=== PATIENT | female | born 1945 | race Caucasian/White ===

== ENCOUNTER → 2017-11-30 | Outpatient (CLI) | payer MEDICARE ==
[~2017-11-30] MED LIST: ALE70 PO; ALLO-2 PO; ALLO100T70 PO; ASP81 PO; ASPI-715 PO; ASPI-839 PO; AZIT500T47 PO; BLOO-784 MC; CEPH-13 PO; CIP500 PO; CIPR-214 PO; CODE120S4 PO; CYAN20003 PO; DAR100 PO; DOC100 PO; FUR20 PO; FURO-45 PO; GLIP-152 PO; HYDR-317 PO; HYDR-385 PO; HYDR473S4 PO; IBAN150T6 PO; LEV500 PO; LEVO50TA80 PO; LEVO50TA86 PO; LIS10 PO; LISI-362 PO; LOR5 PO; METF-410 PO; NAPR-723 PO; OMEP-125 PO; OMEP-137 PO; OMEP-153 PO; ONDA4TAB PO; OXYC-865 PO; PAN40 PO; PER PO; PNEU0.5D3 IM; PRA20 PO; PRAV20TA65 PO; PRAV40TA78 PO; PRAV80TA29 PO; PRO25 PO; PROP40TA45 PO; PROPANOLOL PO; ROSU20TA23 PO; SITA100T PO; SITA50TA6 PO; SULF-197 PO; TERB250T74 PO; TETA0.5V12 IM; TRAM-420 PO; TRAZ-156 PO; ZOST19404 SQ; [UNRECOGNIZED DRUG - CODE] ASDIRECTED; [UNRECOGNIZED DRUG - CODE] MC; [UNRECOGNIZED DRUG - SUPPLY] ASDIRECTED
--- NOTE | 2017-11-30 10:02 | EKG ---
FACILITY: [facility] - [place] PATIENT NAME: PAOLA HOOK : [id number] MR: [id number] V: [id number] EXAM DATE: ORDERING PHYSICIAN: CHARLES JIMENEZ TECHNOLOGIST: JOSE Romo Reason : PRE-OP Blood Pressure : / mmHG Vent. Rate : 077 BPM Atrial Rate : 077 BPM P-R Int : 150 ms QRS Dur : 088 ms QT Int : 402 ms P-R-T Axes : 062 000 127 degrees QTc Int : 454 ms Normal sinus rhythm T wave abnormality, consider lateral ischemia Abnormal ECG When compared with ECG of 21-OCT-2016 13:50, No significant change was found Confirmed by ALAN RAMÍREZ ([id number]) on 11/30/2017 10:39:20 AM Referred By: BARBARA Confirmed By:ALAN RAMÍREZ
--- NOTE | 2017-11-30 11:25 | RADIOLOGY IMAGING REPORT ---
FACILITY: [facility] - [place] PATIENT NAME: Larissa Mccullough : 1945 MR: [id number] V: [id number] EXAM DATE: ORDERING PHYSICIAN: CHARLES JIMENEZ TECHNOLOGIST: Location: [facility] Patient: Larissa Mccullough : 1945 Visit/Account:[id number] Date of Sevice: 11/30/2017 Exam type: CHEST PA AND LAT History: Retention, preop, shortness of breath Comparison: September 20, 2016. Findings: The lungs are free of acute effusions, infiltrates or edema. The cardiac silhouette is normal in siz e. The trachea is midline. There are postsurgical changes of the distal right clavicle and of the l eft shoulder. There are moderate spondylotic changes of the thoracic spine IMPRESSION: 1. No acute pulmonary process is seen Report Dictated By: Sonal Patino MD at 11/30/2017 11:14 AM Report E-Signed By: Sonal Patino MD at 11/30/2017 11:20 AM WSN:[email or web address]
== END ==
LOC: RAD 09:36
PROVIDERS: ATTEND Orthopaedic Surgery
DX: Z01.812 Encounter for preprocedural laboratory examination (principal); Z01.818 Encounter for other preprocedural examination; Z01.810 Encounter for preprocedural cardiovascular examination; M16.12 Unilateral primary osteoarthritis, left hip; N18.3 Chronic kidney disease, stage 3 (moderate); E11.9 Type 2 diabetes mellitus without complications; I10 Essential (primary) hypertension; E03.9 Hypothyroidism, unspecified; R94.31 Abnormal electrocardiogram [ECG] [EKG]
CPT/HCPCS: 71046; 81001; 93005

== ENCOUNTER → 2017-11-30 | Outpatient (CLI) | payer MEDICARE ==
[2017-11-30 13:56] LABS: PLATELET COUNT, AUTOMATED 234 K/uL (150-450)
== END ==
LOC: LAB 13:40
PROVIDERS: ATTEND Emergency Medicine
DX: Z01.818 Encounter for other preprocedural examination (principal); E11.9 Type 2 diabetes mellitus without complications
CPT/HCPCS: 36415; 82040; 82247; 82310; 82374; 82435; 82565; 82947; 83036; 84075; 84132; 84155; 84295; 84450; 84460; 84520; 85025

== ENCOUNTER 2017-12-08 02:30 | Inpatient (IN) | payer MEDICARE, OTHER ==
[2017-12-07 14:31] LABS: INR 1.02
[~2017-12-08] VITALS: Ht 162.6 cm; Wt 103.0 kg
[2017-12-08] VITALS (13 sets, daily range): BP systolic 116–152; BP diastolic 61–90
--- NOTE | 2017-12-08 04:25 | LEVENE H&P ---
DATE OF ADMISSION: December 08, 2017 IDENTIFICATION/CHIEF COMPLAINT The patient is a 72-year-old woman with a chief complaint of left hip pain. HISTORY OF PRESENT ILLNESS The patient has a longstanding history of hip arthritis progressively painful and debilitating, refractory to conservative care. Surgery is indicated to relieve symptoms after failure of nonoperative measures. PAST MEDICAL HISTORY Notable for hypertension, controlled on medication, sleep apnea, hypothyroidism and acid reflux disease, hypercholesterolemia. ALLERGIES She gets nauseated with CODEINE and MORPHINE, but has no true drug allergies. She also gets neck pain with ROSUVASTATIN. CURRENT MEDICATIONS 1. Lasix 20 mg p.o. 3 times per week. 2. Lisinopril 10 mg p.o. daily. 3. Levothyroxine 50 mcg p.o. daily. 4. Omeprazole 20 mg p.o. daily. 5. Pravastatin 40 mg p.o. daily. 6. Metformin 500 mg p.o. b.i.d. 7. Baby aspirin p.o. daily. 8. Allopurinol 300 mg p.o. daily. PAST SURGICAL HISTORY Notable for colonoscopy, breast operation, laminectomy, rotator cuff repair bilaterally, treatment of foot injuries and cholecystectomy. FAMILY HISTORY Noncontributory. SOCIAL HISTORY Negative for tobacco and alcohol use. REVIEW OF SYSTEMS Negative. PHYSICAL EXAMINATION GENERAL: This is a well-developed, well-nourished female who appears stated age. HEENT: Normocephalic, atraumatic. NECK: Supple. LUNGS: Clear. HEART: Regular. ABDOMEN: Soft. ORTHOPEDIC EXAMINATION: The left hip is stiff at the limits of rotation, reproduces her pain exactly. She has no flexion contracture. Hip girdle strength is normal. Skin envelope is intact. Calves nontender. Neurovascular function is intact. RADIOGRAPHIC DATA Radiographs demonstrate advanced DJD. ASSESSMENT Left hip degenerative joint disease, progressively painful and debilitating, refractory to conservative care. PLAN Per patient request, we are going to proceed with left total hip arthroplasty. Nature of the procedure, risks, benefits, the anticipated rehab course were reviewed. Risks include, but are not limited to, , major medical or anesthetic complication, infection, neurovascular injury, blood transfusion, stiffness, scarring, fracture, tendon rupture, instability, implant loosening, migration or failure, leg length discrepancy, need for additional operation, and other unforeseen. She understands and wishes to proceed. Signed permit was placed in the chart, no guarantees given or implied. MTDD
[2017-12-08] MEDS: NORMOSOL R SOLN(*) 1000 ML BAG 1,000 ML IV PRN ×2 (08:06→10:01)
[2017-12-08] MEDS ORDERED: fentaNYL CITR 100 MCG/2 ML AMP ONE ×2 (08:19→12:02)
[2017-12-08] MEDS ORDERED: PROPOFOL EMUL(*) 10MG/ML 20 ML 20 ML ONE (08:20)
[2017-12-08] MEDS ORDERED: LIDOCAINE 2% IV 100 MG/5ML SYR ONE (08:20)
[2017-12-08] MEDS ORDERED: ONDANSETRON 4 MG/2 ML VIAL ONE (10:42)
[2017-12-08] MEDS ORDERED: LACTATED RINGER 3000 ML BAG IR ONE (11:24)
[2017-12-08] MEDS ORDERED: PROMETHAZINE 25 MG/ML 1 ML AMP ONE (12:32)
[2017-12-08] MEDS ORDERED: FAMOTIDINE 20 MG TAB PO ONE (12:45)
[2017-12-08] MEDS ORDERED: TRANEXAMIC AC 1000 MG/10ML SDV 1,000 MG in DEXTROSE 5% 50 ML BAG 50 ML IV ONE (12:45)
[2017-12-08] MEDS ORDERED: LIDOCAINE/SOD BICARB 8.4% SYR ID ONE (12:45)
[2017-12-08] MEDS ORDERED: MIDAZOLAM 2 MG/2 ML VIAL IVP ONE (12:45)
[2017-12-08] MEDS ORDERED: cloNIDine EPIDUR INJ 100MCG/ML 40 MCG, ROPIVACAINE 0.5% 20 ML VIAL 25 ML, EPINEPHrine H... INJ ONE (12:45)
[2017-12-08] MEDS ORDERED: ceFAZolin(*) 2GM/D5W 50ML 50 ML IVPB ONE (12:45)
[2017-12-08] MEDS ORDERED: DIAZEPAM 5 MG TAB PO PRN (12:55)
[2017-12-08] MEDS ORDERED: BISACODYL 10 MG SUPP PR PRN (12:55)
[2017-12-08] MEDS ORDERED: ZOLPIDEM TARTRATE 5 MG TAB PO PRN (12:55)
[2017-12-08] MEDS ORDERED: PROMETHAZINE 25 MG/ML 1 ML AMP IVP PRN (12:55)
[2017-12-08] MEDS ORDERED: diphenhydrAMINE 25 MG CAP PO PRN (12:55)
[2017-12-08] MEDS ORDERED: MAGNESIUM HYDROXIDE* 30ML UDCP PO PRN (12:55)
[2017-12-08] MEDS ORDERED: FLUSH 10 ML SYR IVP PRN (12:55)
[2017-12-08] MEDS ORDERED: ACETAMINOPHEN 325 MG TAB PO PRN (12:55)
[2017-12-08] MEDS ORDERED: BENZOCAINE/MENTHOL 1 EACH LOZG PO PRN (12:55)
[2017-12-08] MEDS ORDERED: NORMOSOL R SOLN(*) 1000 ML BAG 1,000 ML IV PRN (12:55)
[2017-12-08] MEDS ORDERED: diphenhydrAMINE 50 MG/ML VIAL IVP PRN (12:55)
--- NOTE | 2017-12-08 14:04 | RADIOLOGY IMAGING REPORT ---
FACILITY: [facility] - [place] PATIENT NAME: Larissa Mccullough : 1945 MR: [id number] V: [id number] EXAM DATE: ORDERING PHYSICIAN: CHARLES JIMENEZ TECHNOLOGIST: Location: [facility] [place] Patient: Larissa Mccullough : 1945 Visit/Account:[id number] Date of Sevice: 12/08/2017 Exam type: PELVIS History: S/P TOTAL HIP REPLACEMENT, CHECK PLACEMENT Comparison: None. Findings: There is a left total hip arthroplasty that appears in good anatomic alignment on this single AP view . Skin edu project over the left side the pelvis IMPRESSION: 1. As above Report Dictated By: Sonal Patino MD at 12/08/2017 2:00 PM Report E-Signed By: Sonal Patino MD at 12/08/2017 2:00 PM WSN:[email or web address]
--- NOTE | 2017-12-08 15:59 | Hospitalist Progress Note ---
Subjective Progress Notes Subjective No cp/sob. 150cc of EBL. 1800cc of crystalloid, TXA and epinephrine given intra-op. Physical Exam Vital Signs Date Time Temp Pulse Resp B/P (MAP) Pulse Ox O2 Delivery O2 Flow Rate FiO2 12/08/17 14:45 98.1 54 131/74 (93) 95 Nasal Cannula 2.0 12/08/17 13:58 18 Intake and Output 12/09/17 07:00 Intake Total 1975 ml Output Total 150 ml Balance 1825 ml Intake Oral 50 ml IV Total 1925 ml Output Estimated Blood Loss 150 ml General Appearance: Alert, Awake, No Acute Distress Cardiovascular: Regular Rate and Rhythm (2/6 systolic murmur across precordium) Respiratory: Clear to Auscultation Extremities: No Edema Assessment and Plan Problems: (1) Status post hip replacement Status: Acute Assessment & Plan: No CV/pulmonary issues. No reported history of DVT/PE. The patient will be on ASA 325mg a day for 30 days after surgery for blood clot prevention. (2) Type II diabetes mellitus Status: Chronic Assessment & Plan: The patient is chronically on Januvia and Metformin. Metformin to be held. Continue Januvia. Glucose checks AC and HS with SSI level 2. (3) Hypertension Status: Chronic Assessment & Plan: Continue Lisinopril with parameters. (4) Hypothyroidism Status: Chronic Assessment & Plan: Continue levothyroxine. (5) Hyperlipidemia Status: Chronic Assessment & Plan: Continue Pravastatin. (6) CKD (chronic kidney disease) stage 3, GFR 30-59 ml/min Status: Chronic Assessment & Plan: Pre-op creatinine was 0.9. Will follow. Problem Qualifiers (1) Status post hip replacement: Laterality: left Qualified Codes: Z96.642 - Presence of left artificial hip joint YENIFER CHIRINOS MD Dec 08, 2017 15:59
[2017-12-08] MEDS: CELECOXIB 200 MG CAP PO SCH (17:27)
[2017-12-08] MEDS: APAP/HYDROCODONE 325/7.5 TAB PO PRN (17:27)
[2017-12-08] MEDS: ceFAZolin 1 GM VIAL IVP SCH (17:28)
[2017-12-08] MEDS: LISINOPRIL 10 MG TAB PO SCH (20:34)
[2017-12-08] MEDS: PRAVASTATIN SOD 20 MG TAB PO SCH (20:35)
[2017-12-08] MEDS: INSULIN HUM LISPRO 100 UN/ML 3 ML VIAL SUBQ PRN (20:40)
[2017-12-09] MEDS: APAP/HYDROCODONE 325/7.5 TAB PO PRN ×4 (00:04→18:19)
[2017-12-09 01:49] VITALS: BP 140/57
[2017-12-09] MEDS: ceFAZolin 1 GM VIAL IVP SCH (02:22)
[2017-12-09 04:46] VITALS: BP 121/71
--- NOTE | 2017-12-09 06:04 | LEVENE THA ---
EVENT DATE: December 08, 2017 SURGEON: Bryan Ward MD ANESTHESIOLOGIST: Jake Ellsworth MD ANESTHESIA: General plus spinal ENGINEERING ILLUSTRATOR: PAYTON Vargas [employer] DEVELOPER PREOPERATIVE DIAGNOSIS Left hip degenerative joint disease. POSTOPERATIVE DIAGNOSIS Left hip degenerative joint disease. PROCEDURE PERFORMED Left total hip arthroplasty. ESTIMATED BLOOD LOSS 200 mL. DRAINS None. SPECIMENS None. COMPLICATIONS No apparent. IMPLANTS Supply system with a Secur-Fit Max 132 degree size 8 stem, a Trident PSL COREA cluster acetabular shell size 50, X3 0 degree polyethylene liner to accommodate a 36 mm head and a Biolox Delta ceramic C taper femoral head, 36 mm -5 neck length. INDICATIONS The patient is 72-year-old woman with intractable pain and disability related to end-stage hip arthritis. Surgery is indicated to relieve symptoms after failure of non-operative measures. DESCRIPTION OF PROCEDURE The patient was taken to the operating room and placed supine on the operating table. Spinal block was administered by the anesthesiologist. General anesthesia was induced. Antibiotics and TXA were administered IV. The patient was positioned right lateral decubitus on a well-padded peg board with the pelvis secured in a vertical position. All bony prominences and superficial nerves were well padded. Left hip girdle and lower extremity were prepped and draped free in the usual sterile fashion for hip arthroplasty. Standard posterolateral approach was made, carried down through the skin and subcu to the deep fascia. The fascia was incised over the tip of the trochanter, extended distally in line with the femur, proximally in line with the darío fibers. Darío fibers were split bluntly. Trochanteric bursa was excised. The interval between the abductor and external rotator was identified, and abductor mechanism was protected with a blunt Hohmann. An L capsulotomy/ tenotomy was performed with the horizontal limb just above the pyriformis, releasing the capsule and the external rotators directly off the posterior aspect of the femur. Femoral head was dislocated. End-stage arthritis is noted. the capsule and external rotators were tagged with #2 Vicryl for later reattachment. A 1.5 cm neck cut was made, consistent with preoperative templating. Femoral head was extracted. The femur was then translocated anteriorly, and periacetabular retractors were placed with the tips down on bone to avoid injury to critical neurovascular structures. Labrum and pulvinar were excised. A 44 mm reamer was used to medialize to the true medial wall of the acetabulum. This was expanded in 2 mm increments up to 48 and 1 mm increments up to50, where good rim contact is obtained. The 50 trial has nice line to line fit. The 51 was used to open the throat of the acetabulum. Surfaces were copiously lavaged, and the actual shell was impacted in approximately 45 degrees of lateral opening and 15 degrees of anteversion using the transverse acetabular ligament, extracorporeal guide and internal bony landmarks to guide socket placement. Rock solid fixation was achieved. No adjuvant fixation was felt to be needed. The liner was impacted into the cleaned and dried shell. Attention was turned to femoral preparation. Superior neck was resected with a cookie-cutter. Fern bhatti finds the canal. Tapered reaming was performed up to 8, where good endosteal contact was obtained. Broaching was then performed, starting with a 6 and working up to 8, following the big sandy version of the calcar at about 15 degrees, taking care to lateralize. The 8 broach has nice solid fit and fill. It was a bit proud, but this was felt to be ideal. Trial reductions were performed on this, and good caodaism of limb length and stability were achievable with this stem. Broach was extracted. Surfaces were copiously lavaged. The actual stem was impacted into position. Various neck lengths were tried, and the -5 was felt to be optimal for caodaism of soft tissue tension, stability and limb length. The Faith taper was lavaged and dried, and the actual head was impacted into position. Joint was reduced. Wound was copiously lavaged. Pain cocktail was infiltrated throughout. Drill holes were used to reapproximate the external rotators and capsule anatomically to the back to the femur. Deep fascia was closed with #2 Ethibond distally, #2 Vicryl proximally. Subcu was closed with 3-0 Vicryl, skin with surgical edu, Xeroform was applied followed by a sterile dressing and a hip wrap. The patient was rolled supine. Abduction pillow was placed. She was awakened from anesthesia and taken to recovery room in stable condition, having tolerated the procedure well. The plan is for a standard ALINA rehab protocol, weightbearing as tolerated, posterior hip precautions. [facility]
[2017-12-09] MEDS: LEVOTHYROXINE SOD 0.05 MG TAB PO SCH (07:08)
[2017-12-09 07:16] VITALS: BP 123/64
--- NOTE | 2017-12-09 08:00 | Hospitalist Progress Note ---
Subjective Progress Notes Subjective No cp/sob. No concerns from the patient. Physical Exam Vital Signs Date Time Temp Pulse Resp B/P (MAP) Pulse Ox O2 Delivery O2 Flow Rate FiO2 12/09/17 07:18 91 CPAP 4.0 12/09/17 07:16 97.8 65 12 123/64 (83) General Appearance: Alert, Awake, No Acute Distress Result Diagram: 12/09/17 0538 Assessment and Plan Problems: (1) Status post hip replacement Status: Acute Assessment & Plan: No CV/pulmonary issues. No reported history of DVT/PE. The patient will be on ASA 325mg a day for 30 days after surgery for blood clot prevention. (2) Type II diabetes mellitus Status: Chronic Assessment & Plan: The patient is chronically on Januvia and Metformin. Metformin to be held. Continue Januvia. Glucose checks AC and HS with SSI level 2. (3) Hypertension Status: Chronic Assessment & Plan: Continue Lisinopril with parameters. (4) Hypothyroidism Status: Chronic Assessment & Plan: Continue levothyroxine. (5) Hyperlipidemia Status: Chronic Assessment & Plan: Continue Pravastatin. (6) CKD (chronic kidney disease) stage 3, GFR 30-59 ml/min Status: Chronic Assessment & Plan: Baseline creatinine 0.9-1.2. Will follow. Exam Sepsis Risk: No Definite Risk Problem Qualifiers (1) Status post hip replacement: Laterality: left Qualified Codes: Z96.642 - Presence of left artificial hip joint YENIFER CHIRINOS MD Dec 09, 2017 08:00
[2017-12-09] MEDS: ALLOPURINOL 300 MG TAB PO SCH (08:11)
[2017-12-09] MEDS: CELECOXIB 200 MG CAP PO SCH ×2 (08:11→16:59)
[2017-12-09] MEDS: ASPIRIN 325 MG TAB PO SCH (08:11)
[2017-12-09] MEDS: LISINOPRIL 10 MG TAB PO SCH ×2 (08:13→21:26)
[2017-12-09 09:17] VITALS: Ht 162.6 cm; Wt 103.0 kg
[2017-12-09] MEDS ORDERED: SITA50TA6 PO (09:31)
[2017-12-09 16:57] VITALS: BP 133/67
[2017-12-09] MEDS: INSULIN HUM LISPRO 100 UN/ML 3 ML VIAL SUBQ PRN (16:59)
[2017-12-09] MEDS: PRAVASTATIN SOD 20 MG TAB PO SCH (21:26)
[2017-12-10] MEDS: APAP/HYDROCODONE 325/7.5 TAB PO PRN ×3 (00:05→08:58)
[2017-12-10 00:22] VITALS: BP 139/84
[2017-12-10 04:22] VITALS: BP 134/64
[2017-12-10] MEDS: LEVOTHYROXINE SOD 0.05 MG TAB PO SCH (06:26)
--- NOTE | 2017-12-10 06:43 | Hospitalist Progress Note ---
Subjective Progress Notes Subjective She reports doing well. No complaints this AM. Physical Exam Vital Signs Date Time Temp Pulse Resp B/P (MAP) Pulse Ox O2 Delivery O2 Flow Rate FiO2 12/10/17 04:22 97.8 66 14 134/64 (87) 94 CPAP 4.0 General Appearance: Alert, Awake Cardiovascular: Regular Rate and Rhythm Respiratory: Clear to Auscultation Result Diagram: 12/10/17 0517 Assessment and Plan Problems: (1) Status post hip replacement Status: Acute Assessment & Plan: She appears stable post-op. She will be on ASA 325mg a day for 30 days after surgery for blood clot prevention. (2) Type II diabetes mellitus Status: Chronic Assessment & Plan: The patient is chronically on Januvia and Metformin. No changes. (3) Hypertension Status: Chronic Assessment & Plan: Continue Lisinopril. (4) Hypothyroidism Status: Chronic Assessment & Plan: Continue levothyroxine. (5) Hyperlipidemia Status: Chronic Assessment & Plan: Continue Pravastatin. (6) CKD (chronic kidney disease) stage 3, GFR 30-59 ml/min Status: Chronic Assessment & Plan: Baseline creatinine 0.9-1.2. Will follow. (7) TAMY (obstructive sleep apnea) Status: Chronic Assessment & Plan: Continue CPAP. Exam Sepsis Risk: No Definite Risk Problem Qualifiers (1) Status post hip replacement: Laterality: left Qualified Codes: Z96.642 - Presence of left artificial hip joint TITA KNOWLES MD Dec 10, 2017 06:43
[2017-12-10] MEDS ORDERED: ASPI-757 PO (06:46)
[2017-12-10 08:00] VITALS: BP 130/55
[2017-12-10] MEDS: ALLOPURINOL 300 MG TAB PO SCH (08:57)
[2017-12-10] MEDS: ASPIRIN 325 MG TAB PO SCH (08:57)
[2017-12-10] MEDS: LISINOPRIL 10 MG TAB PO SCH (08:58)
[2017-12-10] MEDS: CELECOXIB 200 MG CAP PO SCH (08:58)
[2017-12-10] MEDS ORDERED: HYDR-389 PO (09:26)
[2017-12-10] MEDS ORDERED: HYDR-4308 PO (09:48)
== END 2017-12-10 10:25 | disposition home or self-care (01) | DRG 470 ==
LOC: OR 02:30 → MED 13:50
PROVIDERS: ADMIT Orthopaedic Surgery; ATTEND Orthopaedic Surgery
PROC: 5A09357 Assistance with Respiratory Ventilation, Less than 24 Consecutive Hours, Continuous Positive Airway Pressure (ICD-10-PCS; 2017-12-08)
PROC: 0SRB04Z Replacement of Left Hip Joint with Ceramic on Polyethylene Synthetic Substitute, Open Approach (ICD-10-PCS; principal; 2017-12-08 10:11)
DX: M16.12 Unilateral primary osteoarthritis, left hip (principal); E66.01 Morbid (severe) obesity due to excess calories; E11.22 Type 2 diabetes mellitus with diabetic chronic kidney disease; I12.9 Hypertensive chronic kidney disease with stage 1 through stage 4 chronic kidney disease, or unspecified chronic kidney disease; N18.3 Chronic kidney disease, stage 3 (moderate); K21.9 Gastro-esophageal reflux disease without esophagitis; E03.9 Hypothyroidism, unspecified; I27.20 Pulmonary hypertension, unspecified; E78.5 Hyperlipidemia, unspecified; M1A.9XX0 Chronic gout, unspecified, without tophus (tophi); G47.33 Obstructive sleep apnea (adult) (pediatric); Z99.81 Dependence on supplemental oxygen; Z90.710 Acquired absence of both cervix and uterus; Z88.5 Allergy status to narcotic agent; Z88.8 Allergy status to other drugs, medicaments and biological substances; Z90.49 Acquired absence of other specified parts of digestive tract; Z68.39 Body mass index [BMI] 39.0-39.9, adult; Z79.4 Long term (current) use of insulin; Z85.3 Personal history of malignant neoplasm of breast; Z92.3 Personal history of irradiation
CPT/HCPCS: 36415; 36416; 72170; 82310; 82374; 82435; 82565; 82947; 82948; 84132; 84295; 84520; 85610; 86850; 86900; 86901; 97161; 97165; C1776; J0171; J0690; J0735; J1885; J2001; J2250; J2405; J2550; J2704; J2795; J3010; J7050; J7060; Q0163

== ENCOUNTER 2018-01-10 13:29 | Emergency (ER) | payer MEDICARE, OTHER ==
[2017-12-09 09:17] VITALS: Ht 162.6 cm; Wt 103.0 kg
[~2018-01-10] VITALS: Ht 162.6 cm; Wt 103.0 kg
[~2018-01-10 13:29] MED LIST changes: +ASPI-757 PO; +HYDR-389 PO; +HYDR-4308 PO
--- NOTE | 2018-01-10 13:36 | ER Report ---
History and Physical Time Seen By MD: 13:36 HPI/ROS CHIEF COMPLAINT: Left lower quadrant pain HISTORY OF PRESENT ILLNESS: This is a 72-year-old female who presents to the emergency department for left lower quadrant pain. Patient states that she is concerned that this is related to her left hip replacement. However when the patient is pointing to the area that she is concerned about this as the left lower quadrant and not left hip. Patient states that's the pain has been increasing over the last 2-3 days. Patient denies dysuria, changes in bowel patterns. She denies chest pain or shortness of breath, no aches or chills, no nausea or vomiting. Patient does states that it's more uncomfortable to ambulate she's been using her cane more frequently. REVIEW OF SYSTEMS: Respiratory: No cough, no dyspnea. Cardiovascular: No chest pain, no palpitations. Gastrointestinal: As above. Musculoskeletal: No back pain. Allergies: Coded Allergies: rosuvastatin (Verified Allergy, Intermediate, Left neck pain , 01/10/18) morphine (Verified Allergy, Mild, 01/10/18) codeine (Verified Adverse Reaction, Mild, VOMITING, 01/10/18) Home Meds Active Scripts Metronidazole (METRONIDAZOLE) 500 Mg Tablet, 500 MG PO TID for 10 Days, #29 TAB Pt was given one dose in ED Prov:STARLA PLUMMER [facility] 01/10/18 Ciprofloxacin Hcl (CIPROFLOXACIN HCL) 500 Mg Tablet, 500 MG PO Q12H for 10 Days , #19 TAB 0 Refills Pt was given one dose in ED Prov:STARLA PLUMMER [facility]- 01/10/18 Aspirin (ASPIRIN) 325 Mg Tablet, 325 MG PO QDAY for 30 Days, #30 TAB 0 Refills Prov:TITA KNOWLES MD 12/10/17 Sitagliptin Phosphate (JANUVIA) 50 Mg Tablet, 50 MG PO QDAY, #90 TAB Prov:RICHARD MCKEON MD 12/09/17 Pravastatin Sodium (PRAVASTATIN SODIUM) 80 Mg Tablet, 80 MG PO QHS, #90 TAB 3 Refills Prov:RICHARD MCKEON MD 12/04/17 Blood Sugar Diagnostic (ULTIMA) 1 Each Strip, 1 EACH MC DAILY, #1 BOX 3 Refills Use one strip daily to test blood sugar Prov:RICHARD MCKEON MD 09/30/17 Lancets (Relion Thin) 1 Each Each, BOX ASDIRECTED DAILY, #1 3 Refills Test blood sugar daily Prov:RICHARD MCKEON MD 09/30/17 Furosemide (FUROSEMIDE) 20 Mg Tablet, 1 TAB PO DIRECTED, #36 TAB 3 Refills Three times a week Prov:RICHARD MCKEON MD 09/30/17 Metformin Hcl (METFORMIN HCL) 500 Mg Tablet, 1 TAB PO BID, #180 TAB 4 Refills Prov:RICHARD MCKEON MD 09/30/17 Allopurinol (Allopurinol) 300 Mg Tablet, 1 TAB PO DAILY, #90 TAB 3 Refills Prov:RICHARD MCKEON MD 09/30/17 Lisinopril (LISINOPRIL) 10 Mg Tablet, 1 TAB PO BID, #180 TAB 3 Refills Prov:RICHARD MCKEON MD 09/30/17 Levothyroxine Sodium (LEVOTHYROXINE SODIUM) 50 Mcg Tablet, 1 TAB PO QDAY, #90 TAB 3 Refills Prov:RICHARD MCKEON MD 09/30/17 [Relion Ultima] No Conflict Check, 1 STRIP ASDIRECTED DAILY, #1 BOX 12 Refills Test blood sugar daily Prov:RICHARD MCKEON MD 04/30/17 Reported Medications Acetaminophen/Hydrocodone (HYDROCODON-ACETAMINOPH 7.5-325) 1 Each Ea, 1-2 EACH PO Q4-6H Y for PAIN, #80 EA 0 Refills 12/10/17 Cyanocobalamin (Vitamin B-12) (VITAMIN B-12) 2,000 Mcg Tablet.er, 1 TAB PO DAILY 04/30/17 Aspirin (ASPIR-LOW) 81 Mg Tablet.dr, 1 TAB PO QDAY, TAB 07/24/15 Past Medical/Surgical History Patient has a past medical and surgical history of hypertension, hypercholesterolemia, sleep apnea with CPAP, GERD, arthritis, ankle fracture, chronic back pain, type II diabetes, hypothyroid, shoulder surgery, laminectomy , cataract surgery. Reviewed Nurses Notes: Yes Hx Smoking: No Smoking Status: Never Smoker Exposure to Second Hand Smoke?: No Hx Substance Use Disorder: No Hx Alcohol Use: Yes Constitutional Vital Sign - Last 24 Hours 01/10/18 01/10/18 01/10/18 01/10/18 13:30 13:37 13:44 13:59 Temp 98.6 Pulse 91 80 75 Resp 16 B/P (MAP) 181/91 181/91 (121) Pulse Ox 92 97 84 O2 Delivery Room Air 01/10/18 01/10/18 01/10/18 01/10/18 14:00 14:14 14:29 14:30 Pulse 74 74 B/P (MAP) 142/82 (102) 143/66 (91) Pulse Ox 85 84 01/10/18 01/10/18 01/10/18 01/10/18 15:00 15:14 15:19 15:24 Pulse 68 71 76 B/P (MAP) 120/67 (84) Pulse Ox 82 86 79 01/10/18 01/10/18 01/10/18 01/10/18 15:29 15:30 15:34 15:39 Pulse 70 73 74 B/P (MAP) 136/76 (96) Pulse Ox 91 79 83 01/10/18 01/10/18 01/10/18 01/10/18 16:00 16:09 16:14 16:19 Pulse 73 73 B/P (MAP) 147/77 (100) Pulse Ox 96 91 80 01/10/18 17:08 Pulse 71 B/P (MAP) 150/70 (96) Pulse Ox 90 O2 Delivery Room Air Intake and Output 01/10/18 01/10/18 01/11/18 15:00 23:00 07:00 Intake Total 500 ml Balance 500 ml Physical Exam General Appearance: The patient is alert, has no immediate need for airway protection and no current signs of toxicity. Eyes: Pupils equal and round no injection. Respiratory: Chest is non tender, lungs are clear to auscultation. Cardiac: regular rate and rhythm, no murmurs, clicks or rubs. Gastrointestinal: Abdomen is soft, tenderness to the left lower quadrant, no masses, bowel sounds normal. Musculoskeletal: Neck: Neck is supple and non tender. No CVA tenderness. Extremities have full range of motion and are non tender. Skin: No rashes or lesions. DIFFERENTIAL DIAGNOSIS: After history and physical exam differential diagnosis was considered for abdominal pain including but not limited to appendicitis, cholecystitis, gastritis and urinary tract infection. Medical Decision Making Data Points Result Diagram: 01/10/18 1340 01/10/18 1340 Laboratory Hematology Test 01/10/18 13:35 01/10/18 13:40 Urine Color Yellow Urine Clarity Cloudy Urine pH 5.0 pH (4.8-9.5) Urine Specific Hall 1.026 Urine Protein Negative mg/dL (NEGATIVE) Urine Glucose (UA) Negative mg/dL (NEGATIVE) Urine Ketones Negative mg/dL (NEGATIVE) Urine Blood Negative (NEGATIVE) Urine Nitrite Negative (NEGATIVE) Urine Bilirubin Negative (NEGATIVE) Urine Urobilinogen 4.0 mg/dL (0.2-1.9) Urine Leukocyte Esterase Negative (NEGATIVE) Urine RBC 1 /HPF (0-2/HPF) Urine WBC 2 /HPF (0-5/HPF) Urine Squamous Epithelial Cells Many /LPF (</=FEW) Urine Bacteria Few /HPF (NONE-FEW) Urine Hyaline Casts Few /LPF (NONE-FEW) Urine Mucus Few /HPF (NONE-FEW) Red Blood Count 4.71 M/uL (4.17-5.56) Mean Corpuscular Volume 89.4 fL (80.0-96.0) Mean Corpuscular Hemoglobin 29.0 pg (26.0-33.0) Mean Corpuscular Hemoglobin Concent 32.4 g/dL (32.0-36.0) Red Cell Distribution Width 14.9 % (11.5-14.5) Mean Platelet Volume 8.3 fL (7.2-11.1) Neutrophils (%) (Auto) 62.6 % (39.4-72.5) Lymphocytes (%) (Auto) 24.6 % (17.6-49.6) Monocytes (%) (Auto) 8.9 % (4.1-12.4) Eosinophils (%) (Auto) 3.2 % (0.4-6.7) Basophils (%) (Auto) 0.7 % (0.3-1.4) Nucleated RBC Relative Count (auto) 0.0 /100WBC Neutrophils # (Auto) 4.3 K/uL (2.0-7.4) Lymphocytes # (Auto) 1.7 K/uL (1.3-3.6) Monocytes # (Auto) 0.6 K/uL (0.3-1.0) Eosinophils # (Auto) 0.2 K/uL (0.0-0.5) Basophils # (Auto) 0.0 K/uL (0.0-0.1) Nucleated RBC Absolute Count (auto) 0.00 K/uL Peripheral Blood Smear No Y/N Sodium Level 140 mmol/L (137-145) Potassium Level 3.7 mmol/L (3.5-5.0) Chloride Level 99 mmol/L (98-107) Carbon Dioxide Level 30 mmol/L (22-31) Blood Urea Nitrogen 20 mg/dl (7-18) Creatinine 1.10 mg/dl (0.52-1.04) Glomerular Filtration Rate Calc 48.7 Random Glucose 99 mg/dl (75-110) Calcium Level 9.5 mg/dl (8.4-10.2) Total Bilirubin 0.4 mg/dl (0.2-1.3) Aspartate Amino Transf (AST/SGOT) 19 U/L (0-35) Alanine Aminotransferase (ALT/SGPT) 33 U/L (0-56) Alkaline Phosphatase 108 U/L (0-126) Total Protein 7.9 gm/dl (6.3-8.2) Albumin 4.1 g/dl (3.5-5.0) Chemistry Test 01/10/18 13:35 01/10/18 13:40 Urine Color Yellow Urine Clarity Cloudy Urine pH 5.0 pH (4.8-9.5) Urine Specific Hall 1.026 Urine Protein Negative mg/dL (NEGATIVE) Urine Glucose (UA) Negative mg/dL (NEGATIVE) Urine Ketones Negative mg/dL (NEGATIVE) Urine Blood Negative (NEGATIVE) Urine Nitrite Negative (NEGATIVE) Urine Bilirubin Negative (NEGATIVE) Urine Urobilinogen 4.0 mg/dL (0.2-1.9) Urine Leukocyte Esterase Negative (NEGATIVE) Urine RBC 1 /HPF (0-2/HPF) Urine WBC 2 /HPF (0-5/HPF) Urine Squamous Epithelial Cells Many /LPF (</=FEW) Urine Bacteria Few /HPF (NONE-FEW) Urine Hyaline Casts Few /LPF (NONE-FEW) Urine Mucus Few /HPF (NONE-FEW) White Blood Count 6.9 k/uL (4.5-11.0) Red Blood Count 4.71 M/uL (4.17-5.56) Hemoglobin 13.7 g/dL (12.0-16.0) Hematocrit 42.1 % (34.0-47.0) Mean Corpuscular Volume 89.4 fL (80.0-96.0) Mean Corpuscular Hemoglobin 29.0 pg (26.0-33.0) Mean Corpuscular Hemoglobin Concent 32.4 g/dL (32.0-36.0) Red Cell Distribution Width 14.9 % (11.5-14.5) Platelet Count 218 K/uL (150-450) Mean Platelet Volume 8.3 fL (7.2-11.1) Neutrophils (%) (Auto) 62.6 % (39.4-72.5) Lymphocytes (%) (Auto) 24.6 % (17.6-49.6) Monocytes (%) (Auto) 8.9 % (4.1-12.4) Eosinophils (%) (Auto) 3.2 % (0.4-6.7) Basophils (%) (Auto) 0.7 % (0.3-1.4) Nucleated RBC Relative Count (auto) 0.0 /100WBC Neutrophils # (Auto) 4.3 K/uL (2.0-7.4) Lymphocytes # (Auto) 1.7 K/uL (1.3-3.6) Monocytes # (Auto) 0.6 K/uL (0.3-1.0) Eosinophils # (Auto) 0.2 K/uL (0.0-0.5) Basophils # (Auto) 0.0 K/uL (0.0-0.1) Nucleated RBC Absolute Count (auto) 0.00 K/uL Peripheral Blood Smear No Y/N Glomerular Filtration Rate Calc 48.7 Calcium Level 9.5 mg/dl (8.4-10.2) Total Bilirubin 0.4 mg/dl (0.2-1.3) Aspartate Amino Transf (AST/SGOT) 19 U/L (0-35) Alanine Aminotransferase (ALT/SGPT) 33 U/L (0-56) Alkaline Phosphatase 108 U/L (0-126) Total Protein 7.9 gm/dl (6.3-8.2) Albumin 4.1 g/dl (3.5-5.0) Urinalysis Test 01/10/18 13:35 Urine Color Yellow Urine Clarity Cloudy Urine pH 5.0 pH (4.8-9.5) Urine Specific Hall 1.026 Urine Protein Negative mg/dL (NEGATIVE) Urine Glucose (UA) Negative mg/dL (NEGATIVE) Urine Ketones Negative mg/dL (NEGATIVE) Urine Blood Negative (NEGATIVE) Urine Nitrite Negative (NEGATIVE) Urine Bilirubin Negative (NEGATIVE) Urine Urobilinogen 4.0 mg/dL (0.2-1.9) Urine Leukocyte Esterase Negative (NEGATIVE) Urine RBC 1 /HPF (0-2/HPF) Urine WBC 2 /HPF (0-5/HPF) Urine Squamous Epithelial Cells Many /LPF (</=FEW) Urine Bacteria Few /HPF (NONE-FEW) Urine Hyaline Casts Few /LPF (NONE-FEW) Urine Mucus Few /HPF (NONE-FEW) [place] [facility] [place]issa Mccullough : 1945 Visit/Account:[id number] Date of Sevice: 01/10/2018 EXAMINATION: CT Abdomen and Pelvis With Contrast 01/10/2018 3:26 PM HISTORY: LLQ pain TECHNIQUE: Spiral scan was through the abdomen and pelvis during injection of nonionic iodinated intravenous contrast. Contrast: 100 mL of IV Isovue 370. One of the following dose optimization techniques was utilized in the performance of this exam: Automated exposure control; adjustment of the mA and/ or kV according to the patient's size; or use of an iterative reconstruction technique. Specific details can be referenced in the facility's radiology CT exam operational policy. COMPARISON STUDIES: 12/22/2014 although I don't have all of the images currently available from the PACS archive.. FINDINGS: Liver / biliary: Scattered small incidental cysts or hemangiomas in both lobes. Prior cholecystectomy. Pancreas: negative Spleen: negative Adrenal glands: negative Kidneys / retroperitoneum: Negative. Specifically, no left-sided kidney stone or obstruction to account for the pain. Pelvic structures: There appears to been hysterectomy although portions of the pelvis are obscured by left hip replacement. Normal sized ovaries bilaterally. Bowel / peritoneum / mesenteries: Diverticulosis of the colon. Potential subtle hazing of fat along the mid sigmoid although the artifact from the hip replacement makes this difficult to define with certainty. Certainly, no features of perforation, abscess, or other complication. Normal appendix. No bowel obstruction. No ascites or free air. Vessels: Atherosclerosis. Musculoskeletal / Body wall: Degenerative changes in the spine. Previous left ALINA. Fatty left inguinal hernia present at least back to 05/10/2014. Post lumpectomy changes in the 6:00 area of the right breast. Lymph node assessment: negative Lower chest: Scarring in the anterolateral left base. IMPRESSION: 1. Diverticulosis of the colon. I suspect mid sigmoid diverticulitis although streak artifact from left hip replacement makes it difficult to confidently define this. No evidence of complication by CT. 2. No other acute finding. Report Dictated By: José Antonio Rowan MD at 01/10/2018 4:10 PM Report E-Signed By: José Antonio Rowan MD at 01/10/2018 4:24 PM [id number] ED Course/Re-evaluation Clinical Indication for ER IV: Hydration, IV Access ED Course The patient was admitted to room. A history and physical were obtained. Differential diagnoses were considered. IV was started. A 500 mL bolus of normal saline was given. A CBC, CMP were obtained. A UA was obtained. Negative UA. Lab studies unremarkable. A CT of the abdomen and pelvis reveals a diverticulitis. I did review these results with the patient and her family. Patient states that she feels relieved that there something that's causing this pain. Patient was given 1 dose of Flagyl and 1 dose of Cipro in emergency department. Patient was sent home with prescription for Flagyl and Cipro. Patient was also encouraged to drink plenty of fluids and follow-up with her primary care provider and 7-10 days for reevaluation. Patient was also encouraged to return to the emergency department for any other concerns or worsening symptoms. Decision to Disposition Date: Jan 10, 2018 Decision to Disposition Time: 16:59 Depart Departure Latest Vital Signs Vital Signs Date Time Temp Pulse Resp B/P (MAP) Pulse Ox O2 Delivery O2 Flow Rate FiO2 01/10/18 17:08 71 150/70 (96) 90 Room Air 01/10/18 13:30 98.6 16 Impression: Primary Impression: Diverticulitis Condition: Improved Disposition: HOME OR SELF-CARE Referrals: RICHARD MCKEON MD (PCP) New Scripts Metronidazole (METRONIDAZOLE) 500 Mg Tablet 500 MG PO TID for 10 Days, #29 TAB Pt was given one dose in ED Prov: STARLA PLUMMER [facility] 01/10/18 Ciprofloxacin Hcl (CIPROFLOXACIN HCL) 500 Mg Tablet 500 MG PO Q12H for 10 Days, #19 TAB 0 Refills Pt was given one dose in ED Prov: STARLA PLUMMER- 01/10/18 Patient Instructions: Diverticulitis (ED) Additional Instructions: Drink plenty of fluids. Get plenty of rest. Take the antibiotics as prescribed. Take probiotics while taking the antibiotics. Follow-up with your primary care provider in one to 2 weeks for reevaluation. May return to the emergency department for any other concerns or worsening symptoms. STARLA PLUMMER [employer] [facility]- Jan 10, 2018 13:36
[2018-01-10 14:04] LABS: PLATELET COUNT, AUTOMATED 218 K/uL (150-450)
[2018-01-10] MEDS ORDERED: NS(*) 0.9% 500 ML BAG 500 ML IV ONE (14:20)
[2018-01-10] MEDS ORDERED: IOPAMIDOL 76% 100 ML INFUS BTL 100 ML ONE (15:45)
--- NOTE | 2018-01-10 16:27 | RADIOLOGY IMAGING REPORT ---
FACILITY: [facility] - [place] PATIENT NAME: Larissa Mccullough : 1945 MR: [id number] V: [id number] EXAM DATE: ORDERING PHYSICIAN: STARLA PLUMMER TECHNOLOGIST: Location: [facility] Patient: Larissa Mccullough : 1945 Visit/Account:[id number] Date of Sevice: 01/10/2018 EXAMINATION: CT Abdomen and Pelvis With Contrast 01/10/2018 3:26 PM HISTORY: LLQ pain TECHNIQUE: Spiral scan was through the abdomen and pelvis during injection of nonionic iodinated in travenous contrast. Contrast: 100 mL of IV Isovue 370. One of the following dose optimization techniques was utilized in the performance of this exam: Autom ated exposure control; adjustment of the mA and/or kV according to the patient's size; or use of an i terative reconstruction technique. Specific details can be referenced in the facility's radiology C T exam operational policy. COMPARISON STUDIES: 12/22/2014 although I don't have all of the images currently available from the PACS archive.. FINDINGS: Liver / biliary: Scattered small incidental cysts or hemangiomas in both lobes. Prior cholecystectomy . Pancreas: negative Spleen: negative Adrenal glands: negative Kidneys / retroperitoneum: Negative. Specifically, no left-sided kidney stone or obstruction to accou nt for the pain. Pelvic structures: There appears to been hysterectomy although portions of the pelvis are obscured by left hip replacement. Normal sized ovaries bilaterally. Bowel / peritoneum / mesenteries: Diverticulosis of the colon. Potential subtle hazing of fat along t he mid sigmoid although the artifact from the hip replacement makes this difficult to define with cer tainty. Certainly, no features of perforation, abscess, or other complication. Normal appendix. No kellee wel obstruction. No ascites or free air. Vessels: Atherosclerosis. Musculoskeletal / Body wall: Degenerative changes in the spine. Previous left ALINA. Fatty left inguina l hernia present at least back to 05/10/2014. Post lumpectomy changes in the 6:00 area of the right br east. Lymph node assessment: negative Lower chest: Scarring in the anterolateral left base. IMPRESSION: 1. Diverticulosis of the colon. I suspect mid sigmoid diverticulitis although streak artifact from le ft hip replacement makes it difficult to confidently define this. No evidence of complication by CT. 2. No other acute finding. Report Dictated By: José Antonio Rowan MD at 01/10/2018 4:10 PM Report E-Signed By: José Antonio Rowan MD at 01/10/2018 4:24 PM [id number]
[2018-01-10] MEDS ORDERED: CIPROFLOXACIN 500 MG TAB PO ONE (17:00)
[2018-01-10] MEDS ORDERED: METRONIDAZOLE 500 MG TABLET PO ONE (17:00)
[2018-01-10] MEDS ORDERED: CIPR-214 PO (17:04)
[2018-01-10] MEDS ORDERED: METR-160 PO (17:04)
[2018-01-10 17:08] VITALS: BP 150/70
== END 2018-01-10 17:16 | disposition home or self-care (01) ==
LOC: ER 13:38
DX: K57.92 Diverticulitis of intestine, part unspecified, without perforation or abscess without bleeding (principal)
CPT/HCPCS: 74177; 81001; 85025; 96360; 99284; A9270; J7040; Q9967; 82040; 82247; 82310; 82374; 82435; 82565; 82947; 84075; 84132; 84155; 84295; 84450; 84460; 84520

== ENCOUNTER 2018-01-16 21:15 | Emergency (ER) | payer MEDICARE ==
[2017-12-09 09:17] VITALS: Wt 103.0 kg
[~2018-01-16 21:15] MED LIST changes: +AMOX-559 PO; +METR-160 PO
--- NOTE | 2018-01-16 21:32 | ER Report ---
History and Physical Time Seen By MD: 21:32 Hx. of Stated Complaint: PT HAVING RXN TO DOXYCYCLINE AND THEN AUGMENTIN. PT REPORTS COREA, UPSET STOMACH, AND "JERKING." HPI/ROS CHIEF COMPLAINT: suspected side effect of medicine. HISTORY OF PRESENT ILLNESS: This is a 72 year old female. She has been treated recently for diverticulitis. Started on Cipro and Flagyl. Called the ER the other day because of nausea, headache and some myoclonic jerks happening. The Cipro and Flagyl were discontinued. She started Augmentin and has had 2 doses so far. Still having the symptoms. Abdominal pain has resolved. No further fevers. Normal bowels and urination. No sure if she should stop the Augmentin or what else to do. No chest pain or shortness of breath. Allergies: Coded Allergies: rosuvastatin (Verified Allergy, Intermediate, Left neck pain , 01/16/18) morphine (Verified Allergy, Mild, 01/16/18) codeine (Verified Adverse Reaction, Mild, VOMITING, 01/16/18) amoxicillin (Verified Adverse Reaction, Unknown, JERKING, 01/16/18) clavulanic acid (Verified Adverse Reaction, Unknown, JERKING, 01/16/18) doxycycline (Verified Adverse Reaction, Unknown, JERKING, 01/16/18) Home Meds Active Scripts Aspirin (ASPIRIN) 325 Mg Tablet, 325 MG PO QDAY for 30 Days, #30 TAB 0 Refills Prov:TITA KNOWLES MD 12/10/17 Sitagliptin Phosphate (JANUVIA) 50 Mg Tablet, 50 MG PO QDAY, #90 TAB Prov:RICHARD MCKEON MD 12/09/17 Pravastatin Sodium (PRAVASTATIN SODIUM) 80 Mg Tablet, 80 MG PO QHS, #90 TAB 3 Refills Prov:RICHARD MCKEON MD 12/04/17 Blood Sugar Diagnostic (ULTIMA) 1 Each Strip, 1 EACH MC DAILY, #1 BOX 3 Refills Use one strip daily to test blood sugar Prov:RICHARD MCKEON MD 09/30/17 Lancets (Relion Thin) 1 Each Each, BOX ASDIRECTED DAILY, #1 3 Refills Test blood sugar daily Prov:RICHARD MCKEON MD 09/30/17 Furosemide (FUROSEMIDE) 20 Mg Tablet, 1 TAB PO DIRECTED, #36 TAB 3 Refills Three times a week Prov:RICHARD MCKEON MD 09/30/17 Metformin Hcl (METFORMIN HCL) 500 Mg Tablet, 1 TAB PO BID, #180 TAB 4 Refills Prov:RICHARD MCKEON MD 09/30/17 Allopurinol (Allopurinol) 300 Mg Tablet, 1 TAB PO DAILY, #90 TAB 3 Refills Prov:RICHARD MCKEON MD 09/30/17 Lisinopril (LISINOPRIL) 10 Mg Tablet, 1 TAB PO BID, #180 TAB 3 Refills Prov:RICHARD MCKEON MD 09/30/17 Levothyroxine Sodium (LEVOTHYROXINE SODIUM) 50 Mcg Tablet, 1 TAB PO QDAY, #90 TAB 3 Refills Prov:RICHARD MCKEON MD 09/30/17 [Relion Ultima] No Conflict Check, 1 STRIP ASDIRECTED DAILY, #1 BOX 12 Refills Test blood sugar daily Prov:RICHARD MCKEON MD 04/30/17 Reported Medications Acetaminophen/Hydrocodone (HYDROCODON-ACETAMINOPH 7.5-325) 1 Each Ea, 1-2 EACH PO Q4-6H Y for PAIN, #80 EA 0 Refills 12/10/17 Cyanocobalamin (Vitamin B-12) (VITAMIN B-12) 2,000 Mcg Tablet.er, 1 TAB PO DAILY 04/30/17 Aspirin (ASPIR-LOW) 81 Mg Tablet.dr, 1 TAB PO QDAY, TAB 07/24/15 Discontinued Scripts Amoxicillin/Pot Clav 875-125 Mg Tab (AUGMENTIN 875-125 TABLET) 1 Each Tablet, 1 TAB PO TID, #21 TAB 0 Refills Prov:RICHARD MCKEON MD 01/15/18 Metronidazole (METRONIDAZOLE) 500 Mg Tablet, 500 MG PO TID for 10 Days, #29 TAB Pt was given one dose in ED Prov:STARLA PLUMMER [employer]ICAL ENGINEER-BC 01/10/18 Ciprofloxacin Hcl (CIPROFLOXACIN HCL) 500 Mg Tablet, 500 MG PO Q12H for 10 Days , #19 TAB 0 Refills Pt was given one dose in ED Prov:STARLA PLUMMER [employer]CH[employer]ICAL ENGINEER-BC 01/10/18 Reviewed Nurses Notes: Yes Hx Smoking: No Smoking Status: Never Smoker Exposure to Second Hand Smoke?: No Hx Substance Use Disorder: No Hx Alcohol Use: Yes Constitutional Vital Sign - Last 24 Hours 01/16/18 01/16/18 01/16/18 01/16/18 21:20 21:24 21:45 22:00 Temp 99.1 Pulse 78 74 69 Resp 18 B/P (MAP) 173/95 (121) 173/95 Pulse Ox 90 93 95 O2 Delivery Room Air 01/16/18 01/16/18 01/16/18 01/16/18 22:01 22:15 22:30 22:35 Pulse 70 69 70 B/P (MAP) 167/79 (108) 158/82 (107) Pulse Ox 95 96 96 01/16/18 01/16/18 22:50 22:54 Pulse 69 B/P (MAP) 157/96 (116) Pulse Ox 94 Physical Exam General Appearance: The patient is alert, has no immediate need for airway protection and no current signs of toxicity. Eyes: Pupils equal and round no injection. ENT: Normal oral mucosa. Moist mucous membranes. Tympanic membranes are normal. Neck: Neck is supple and non tender. Respiratory: Chest is non tender, lungs are clear to auscultation. Cardiac: regular rate and rhythm Gastrointestinal: Abdomen is soft and non tender, no masses, bowel sounds normal. Musculoskeletal: Extremities have full range of motion. Skin: No rashes or lesions. DIFFERENTIAL DIAGNOSIS: After history and physical exam differential diagnosis was considered for a patient with possible medicine side effect. Medical Decision Making Data Points Result Diagram: 01/16/18215101/16/182151 Laboratory Hematology Test 01/16/18 21:52 01/16/18 21:59 Red Blood Count 4.66 M/uL (4.17-5.56) Mean Corpuscular Volume 88.9 fL (80.0-96.0) Mean Corpuscular Hemoglobin 29.2 pg (26.0-33.0) Mean Corpuscular Hemoglobin Concent 32.8 g/dL (32.0-36.0) Red Cell Distribution Width 15.0 % (11.5-14.5) Mean Platelet Volume 8.2 fL (7.2-11.1) Neutrophils (%) (Auto) 64.3 % (39.4-72.5) Lymphocytes (%) (Auto) 20.4 % (17.6-49.6) Monocytes (%) (Auto) 8.7 % (4.1-12.4) Eosinophils (%) (Auto) 4.1 % (0.4-6.7) Basophils (%) (Auto) 2.5 % (0.3-1.4) Nucleated RBC Relative Count (auto) 0.0 /100WBC Neutrophils # (Auto) 4.9 K/uL (2.0-7.4) Lymphocytes # (Auto) 1.6 K/uL (1.3-3.6) Monocytes # (Auto) 0.7 K/uL (0.3-1.0) Eosinophils # (Auto) 0.3 K/uL (0.0-0.5) Basophils # (Auto) 0.2 K/uL (0.0-0.1) Nucleated RBC Absolute Count (auto) 0.00 K/uL Sodium Level 140 mmol/L (137-145) Potassium Level 3.6 mmol/L (3.5-5.0) Chloride Level 102 mmol/L (98-107) Carbon Dioxide Level 27 mmol/L (22-31) Blood Urea Nitrogen 15 mg/dl (7-18) Creatinine 1.10 mg/dl (0.52-1.04) Glomerular Filtration Rate Calc 48.7 Random Glucose 132 mg/dl (75-110) Calcium Level 9.3 mg/dl (8.4-10.2) Total Bilirubin 0.3 mg/dl (0.2-1.3) Aspartate Amino Transf (AST/SGOT) 19 U/L (0-35) Alanine Aminotransferase (ALT/SGPT) 30 U/L (0-56) Alkaline Phosphatase 89 U/L (0-126) Total Protein 7.4 gm/dl (6.3-8.2) Albumin 3.8 g/dl (3.5-5.0) Urine Color Yellow Urine Clarity Slightly-cloudy Urine pH 5.0 pH (4.8-9.5) Urine Specific [place] 1.020 Urine Protein Negative mg/dL (NEGATIVE) Urine Glucose (UA) Negative mg/dL (NEGATIVE) Urine Ketones Negative mg/dL (NEGATIVE) Urine Blood Negative (NEGATIVE) Urine Nitrite Negative (NEGATIVE) Urine Bilirubin Negative (NEGATIVE) Urine Urobilinogen Negative mg/dL (0.2-1.9) Urine Leukocyte Esterase Trace (NEGATIVE) Urine RBC 1 /HPF (0-2/HPF) Urine WBC 2 /HPF (0-5/HPF) Urine Squamous Epithelial Cells Many /LPF (</=FEW) Urine Calcium Oxalate Crystals Few /HPF (NONE) Urine Bacteria Negative /HPF (NONE-FEW) Urine Hyaline Casts Few /LPF (NONE-FEW) Urine Mucus None /HPF (NONE-FEW) Chemistry Test 01/16/18 21:52 01/16/18 21:59 White Blood Count 7.6 k/uL (4.5-11.0) Red Blood Count 4.66 M/uL (4.17-5.56) Hemoglobin 13.6 g/dL (12.0-16.0) Hematocrit 41.4 % (34.0-47.0) Mean Corpuscular Volume 88.9 fL (80.0-96.0) Mean Corpuscular Hemoglobin 29.2 pg (26.0-33.0) Mean Corpuscular Hemoglobin Concent 32.8 g/dL (32.0-36.0) Red Cell Distribution Width 15.0 % (11.5-14.5) Platelet Count 205 K/uL (150-450) Mean Platelet Volume 8.2 fL (7.2-11.1) Neutrophils (%) (Auto) 64.3 % (39.4-72.5) Lymphocytes (%) (Auto) 20.4 % (17.6-49.6) Monocytes (%) (Auto) 8.7 % (4.1-12.4) Eosinophils (%) (Auto) 4.1 % (0.4-6.7) Basophils (%) (Auto) 2.5 % (0.3-1.4) Nucleated RBC Relative Count (auto) 0.0 /100WBC Neutrophils # (Auto) 4.9 K/uL (2.0-7.4) Lymphocytes # (Auto) 1.6 K/uL (1.3-3.6) Monocytes # (Auto) 0.7 K/uL (0.3-1.0) Eosinophils # (Auto) 0.3 K/uL (0.0-0.5) Basophils # (Auto) 0.2 K/uL (0.0-0.1) Nucleated RBC Absolute Count (auto) 0.00 K/uL Glomerular Filtration Rate Calc 48.7 Calcium Level 9.3 mg/dl (8.4-10.2) Total Bilirubin 0.3 mg/dl (0.2-1.3) Aspartate Amino Transf (AST/SGOT) 19 U/L (0-35) Alanine Aminotransferase (ALT/SGPT) 30 U/L (0-56) Alkaline Phosphatase 89 U/L (0-126) Total Protein 7.4 gm/dl (6.3-8.2) Albumin 3.8 g/dl (3.5-5.0) Urine Color Yellow Urine Clarity Slightly-cloudy Urine pH 5.0 pH (4.8-9.5) Urine Specific [place] 1.020 Urine Protein Negative mg/dL (NEGATIVE) Urine Glucose (UA) Negative mg/dL (NEGATIVE) Urine Ketones Negative mg/dL (NEGATIVE) Urine Blood Negative (NEGATIVE) Urine Nitrite Negative (NEGATIVE) Urine Bilirubin Negative (NEGATIVE) Urine Urobilinogen Negative mg/dL (0.2-1.9) Urine Leukocyte Esterase Trace (NEGATIVE) Urine RBC 1 /HPF (0-2/HPF) Urine WBC 2 /HPF (0-5/HPF) Urine Squamous Epithelial Cells Many /LPF (</=FEW) Urine Calcium Oxalate Crystals Few /HPF (NONE) Urine Bacteria Negative /HPF (NONE-FEW) Urine Hyaline Casts Few /LPF (NONE-FEW) Urine Mucus None /HPF (NONE-FEW) Urinalysis Test 01/16/18 21:59 Urine Color Yellow Urine Clarity Slightly-cloudy Urine pH 5.0 pH (4.8-9.5) Urine Specific [place] 1.020 Urine Protein Negative mg/dL (NEGATIVE) Urine Glucose (UA) Negative mg/dL (NEGATIVE) Urine Ketones Negative mg/dL (NEGATIVE) Urine Blood Negative (NEGATIVE) Urine Nitrite Negative (NEGATIVE) Urine Bilirubin Negative (NEGATIVE) Urine Urobilinogen Negative mg/dL (0.2-1.9) Urine Leukocyte Esterase Trace (NEGATIVE) Urine RBC 1 /HPF (0-2/HPF) Urine WBC 2 /HPF (0-5/HPF) Urine Squamous Epithelial Cells Many /LPF (</=FEW) Urine Calcium Oxalate Crystals Few /HPF (NONE) Urine Bacteria Negative /HPF (NONE-FEW) Urine Hyaline Casts Few /LPF (NONE-FEW) Urine Mucus None /HPF (NONE-FEW) ED Course/Re-evaluation ED Course Labs obtained and compared to past labs. No significant changes noted. Suspect side effect to the Cipro of Flagyl, but based on the fact that she is still having symptoms, but that the symptoms of her diverticulitis have resolved, we will stop the Augmentin as well and watch for resolution of symptoms. Decision to Disposition Date: Jan 16, 2018 Decision to Disposition Time: 22:44 Depart Departure Latest Vital Signs Vital Signs Date Time Temp Pulse Resp B/P (MAP) Pulse Ox O2 Delivery O2 Flow Rate FiO2 01/16/18 22:54 157/96 (116) 01/16/18 22:50 69 94 01/16/18 21:24 99.1 18 Room Air Impression: Primary Impression: Medication side effects Condition: Improved Disposition: HOME OR SELF-CARE Referrals: RICHARD MCKEON MD (PCP) Patient Instructions: Adverse Drug Reaction (ED) Additional Instructions: Stop you antibiotics. Please call and schedule a follow-up with your primary care provider. LUC SOUZA MD Jan 16, 2018 21:32
[2018-01-16 22:00] LABS: PLATELET COUNT, AUTOMATED 205 K/uL (150-450)
[2018-01-16 22:54] VITALS: BP 157/96
== END 2018-01-16 22:58 | disposition home or self-care (01) ==
LOC: ER 21:48
DX: T37.3X5A Adverse effect of other antiprotozoal drugs, initial encounter (principal); T36.8X5A Adverse effect of other systemic antibiotics, initial encounter
CPT/HCPCS: 36415; 81001; 82040; 82247; 82310; 82374; 82435; 82565; 82947; 84075; 84132; 84155; 84295; 84450; 84460; 84520; 85025; 99283

== ENCOUNTER → 2018-02-18 | Outpatient (CLI) | payer MEDICARE ==
[2017-12-09 09:17] VITALS: BMI 39.0
[~2018-02-18] MED LIST changes: +META800T18 PO
== END ==
LOC: LAB 13:37
PROVIDERS: ATTEND Emergency Medicine
DX: Z02.9 Encounter for administrative examinations, unspecified (principal)

== ENCOUNTER → 2018-02-22 | Outpatient (CLI) | payer MEDICARE ==
[2017-12-09 09:17] VITALS: BMI 39.0
== END ==
LOC: LAB 12:33
PROVIDERS: ATTEND Emergency Medicine
DX: K92.1 Melena (principal)
CPT/HCPCS: 82274

== ENCOUNTER → 2018-03-01 | Outpatient (CLI) | payer MEDICARE ==
[2017-12-09 09:17] VITALS: BMI 39.0
== END ==
LOC: LAB 07:50
PROVIDERS: ATTEND Emergency Medicine
DX: E55.9 Vitamin D deficiency, unspecified (principal)
CPT/HCPCS: 36415; 82306

== ENCOUNTER → 2018-04-15 | Outpatient (CLI) | payer MEDICARE ==
[2017-12-09 09:17] VITALS: BMI 39.0
[~2018-04-15] MED LIST changes: -METF-410 PO; +METF-411 PO
--- NOTE | 2018-04-15 16:14 | RADIOLOGY IMAGING REPORT ---
FACILITY: [facility] PATIENT NAME: PAOLA HOOK : [id number] MR: [id number] V: [id number] EXAM DATE: [id number] ORDERING PHYSICIAN: RICHARD MCKEON TECHNOLOGIST: Sierra Maya PROCEDURE:BILATERAL DIGITAL SCREENING MAMMOGRAM WITH CAD ASSISTED INTERPRETATION & 3D TOMOSYNTHESIS COMPARISON:Mammogram 06/20/2015 and 04/14/2017. INDICATIONS:SCREENING FINDINGS: Breast tissue demonstrates scattered fibroglandular tissue elements. There are postoperative changes from prior biopsy Right breast, with stable architectural distortion. There is no suspicious mass, calcification, or architectural distortion. DIAGNOSTIC CATEGORY 2- BENIGN FINDINGS. RECOMMENDATIONS: ROUTINE MAMMOGRAM AND CLINICAL EVALUATION. IMPRESSION: BIRADS 2: Benign findings. No mammographic evidence for malignancy. Dictated by: José Antonio Garnica M.D. on 04/15/2018 at 14:05 Transcribed by: COLTEN on 04/15/2018 at 14:42 Approved by: José Antonio Garnica M.D. on 04/15/2018 at 16:13 [facility]
== END ==
LOC: MAMO 01:18
PROVIDERS: ATTEND Emergency Medicine
DX: Z12.31 Encounter for screening mammogram for malignant neoplasm of breast (principal)
CPT/HCPCS: 77063; 77067

== ENCOUNTER 2018-06-16 13:27 | Emergency (ER) | payer MEDICARE ==
[2017-12-09 09:17] VITALS: Wt 104.3 kg
[~2018-06-16 13:27] MED LIST changes: -TRAZ-156 PO; +TRAZ50TA34 PO
--- NOTE | 2018-06-16 14:00 | ER Report ---
History and Physical Time Seen By MD: 13:59 Hx. of Stated Complaint: abd pain that radiates to perineum and lower back HPI/ROS Chief Concern: abdominal pain History of Present Illnesses: 73-year-old female presents to the emergency department with her granddaughter. Reports that 2 days ago she started have pain in her abdomen. Reports that the pain radiates up from her pelvis into her abdomen and around into her back bilaterally. States moving makes the pain worse. The pain is better at rest. States she has a family history of ovarian cancer and wanted to make sure that was not the etiology of her pain. The patient reports the pain is 0 out of 10 at rest in the patient bed. No treatments tried. No associated symptoms. Constitutional: Denies recent illness, malaise, chills, fever. HEENT: Denies headache. No sinus congestion. No sore throat. Cardiovascular. Denies chest pain, palpitations, or diaphoresis. Respiratory: Denies cough, shortness of breath, or wheezing. Gastrointestinal System: Denies nausea, vomiting, hematochezia, or black stools. Reports pelvic and abdominal pain. Genitourinary: Reports lower back pain, hematuria, painful voiding, or trouble with emptying bladder. Musculoskeletal: Denies muscular pain, no joint pain. Allergies: Coded Allergies: rosuvastatin (Verified Allergy, Intermediate, Left neck pain , 06/16/18) morphine (Verified Allergy, Mild, 06/16/18) codeine (Verified Adverse Reaction, Mild, VOMITING, 06/16/18) amoxicillin (Verified Adverse Reaction, Unknown, JERKING, 06/16/18) clavulanic acid (Verified Adverse Reaction, Unknown, JERKING, 06/16/18) doxycycline (Verified Adverse Reaction, Unknown, JERKING, 06/16/18) Home Meds Active Scripts Hydrocodone Bit/Acetaminophen (HYDROCODON-ACETAMINOPHEN 5-325) 1 Each Tablet, 1 EACH PO Q4-6H Y for PAIN, #8 TAB Prov:ANAND SWANSON [facility] 06/16/18 Metronidazole (METRONIDAZOLE) 500 Mg Tablet, 500 MG PO TID for 7 Days, #21 TAB Prov:ANAND SWANSON [facility] 06/16/18 Ciprofloxacin Hcl (CIPROFLOXACIN HCL) 500 Mg Tablet, 500 MG PO Q12H for 7 Days, #14 TAB Prov:ANAND SWANSON [facility] 06/16/18 Pravastatin Sodium (PRAVASTATIN SODIUM) 80 Mg Tablet, 80 MG PO QHS, #90 TAB 3 Refills Prov:RICHARD MCKEON MD 04/16/18 Sitagliptin Phosphate (JANUVIA) 50 Mg Tablet, 50 MG PO QDAY, #90 TAB 3 Refills Prov:RICHARD MCKEON MD 03/01/18 Blood Sugar Diagnostic (ULTIMA) 1 Each Strip, 1 EACH MC DAILY, #1 BOX 3 Refills Use one strip daily to test blood sugar Prov:RICHARD MCKEON MD 09/30/17 Lancets (Relion Thin) 1 Each Each, BOX ASDIRECTED DAILY, #1 3 Refills Test blood sugar daily Prov:RICHARD MCKEON MD 09/30/17 Furosemide (FUROSEMIDE) 20 Mg Tablet, 1 TAB PO DIRECTED, #36 TAB 3 Refills Three times a week Prov:RICHARD MCKEON MD 09/30/17 Metformin Hcl (METFORMIN HCL) 500 Mg Tablet, 1 TAB PO BID, #180 TAB 4 Refills Prov:RICHARD MCKEON MD 09/30/17 Allopurinol (Allopurinol) 300 Mg Tablet, 1 TAB PO DAILY, #90 TAB 3 Refills Prov:RICHARD MCKEON MD 09/30/17 Lisinopril (LISINOPRIL) 10 Mg Tablet, 1 TAB PO BID, #180 TAB 3 Refills Prov:RICHARD MCKEON MD 09/30/17 Levothyroxine Sodium (LEVOTHYROXINE SODIUM) 50 Mcg Tablet, 1 TAB PO QDAY, #90 TAB 3 Refills Prov:RICHARD MCKEON MD 09/30/17 [Relion Ultima] No Conflict Check, 1 STRIP ASDIRECTED DAILY, #1 BOX 12 Refills Test blood sugar daily Prov:RICHARD MCKEON MD 04/30/17 Reported Medications Cyanocobalamin (Vitamin B-12) (VITAMIN B-12) 2,000 Mcg Tablet.er, 1 TAB PO DAILY 04/30/17 Aspirin (ASPIR-LOW) 81 Mg Tablet.dr, 1 TAB PO QDAY, TAB 07/24/15 Discontinued Scripts Metaxalone (SKELAXIN) 800 Mg Tablet, 800 MG PO TID for PAIN, #30 TAB Prov:RICHARD MCKEON MD 02/18/18 Trazodone Hcl (TRAZODONE HCL) 50 Mg Tablet, 1-2 TAB PO QHS, #180 TAB 3 Refills Prov:RICHARD MCKEON MD 02/12/18 Past Medical/Surgical History hysterectomy in 1980s, Past Medical History: hypertension, sleep apnea, hypothyroidism Surgical History: ankle fracture 10/2016, right breast lumpectomy with radiation, [id number], left eye cataract surgery Hx Smoking: No Smoking Status: Never Smoker Exposure to Second Hand Smoke?: No Hx Substance Use Disorder: No Hx Alcohol Use: Yes Constitutional Vital Sign - Last 24 Hours 06/16/18 06/16/18 06/16/18 06/16/18 13:32 13:34 13:42 13:57 Temp 97.9 Pulse 91 84 82 Resp 16 B/P (MAP) 146/68 (94) 146/68 Pulse Ox 87 91 90 O2 Delivery Room Air 06/16/18 06/16/18 06/16/18 06/16/18 14:00 14:12 14:27 14:30 Pulse 83 81 B/P (MAP) 130/83 (99) 136/80 (98) Pulse Ox 90 06/16/18 06/16/18 06/16/18 06/16/18 14:42 14:57 15:02 15:17 Pulse 80 84 79 87 Pulse Ox 89 94 87 90 O2 Delivery Nasal Cannula Room Air Nasal Cannula O2 Flow Rate 3 3 06/16/18 06/16/18 06/16/18 06/16/18 15:30 16:00 16:22 16:30 B/P (MAP) 143/89 (107) 135/114 (121) 198/116 (143) O2 Flow Rate 3.0 06/16/18 06/16/18 06/16/18 06/16/18 16:32 18:15 18:18 18:30 Pulse 102 90 80 B/P (MAP) 131/70 (90) 116/95 (102) Pulse Ox 97 91 91 O2 Delivery Nasal Cannula Nasal Cannula Nasal Cannula O2 Flow Rate 3 3 3 06/16/18 18:45 Pulse 83 Pulse Ox 91 O2 Delivery Nasal Cannula O2 Flow Rate 3 Intake and Output 06/16/18 06/16/18 06/17/18 15:00 23:00 07:00 Intake Total 1000 ml Balance 1000 ml Physical Exam Constitutional: 73-year-old female in no acute distress. Skin: [place] and well perfused BL. No evidence of generalized rash. Generally, warm and dry to touch. HEENT: Normocephalic and atraumatic. Non-injected. No exudates. PERRLA. Corneas grossly intact. Neck: Neck supple, erect, trachea midline, no masses. Lymph nodes- cervical chain, pre-and post-auricular, occipital, mandibular, and submental lymph nodes non-tender and non-palpable. BL parotid glands non-tender and non-palpable. Cardiovascular: 2+ radial pulses BL equal. PMI - left midclavicular at the 5th ICS. Aortic, pulmonic, tricuspid, and mitral areas - clear S1/S2; no murmur, no S3, or S4. Respiratory: Respiratory Excursion BL equal and symmetrical; no presence of lag; quiet, rhythmic and effortless. No retractions. BL clear and equal. GI: obese, normoactive bowels sounds x4 quadrants, right upper quadrant pain on palpation, suprapubic pain, no CVA tenderness Musculoskeletal: Active motion of all extremities. Neurologic: Alert. Language clear. Cranial nerves grossly intact. Differential Diagnoses: UTI, pyelonephritis, pancreatitis, diverticulitis, kidney stones, ovarian cancer Medical Decision Making Data Points Result Diagram: 06/16/18 1425 06/16/18 1425 Laboratory Hematology Test 06/16/18 14:25 06/16/18 14:50 Red Blood Count 4.64 M/uL (4.17-5.56) Mean Corpuscular Volume 87.9 fL (80.0-96.0) Mean Corpuscular Hemoglobin 29.1 pg (26.0-33.0) Mean Corpuscular Hemoglobin Concent 33.1 g/dL (32.0-36.0) Red Cell Distribution Width 15.7 % (11.5-14.5) Mean Platelet Volume 8.7 fL (7.2-11.1) Neutrophils (%) (Auto) 80.4 % (39.4-72.5) Lymphocytes (%) (Auto) 10.8 % (17.6-49.6) Monocytes (%) (Auto) 7.5 % (4.1-12.4) Eosinophils (%) (Auto) 0.9 % (0.4-6.7) Basophils (%) (Auto) 0.4 % (0.3-1.4) Nucleated RBC Relative Count (auto) 0.0 /100WBC Neutrophils # (Auto) 9.7 K/uL (2.0-7.4) Lymphocytes # (Auto) 1.3 K/uL (1.3-3.6) Monocytes # (Auto) 0.9 K/uL (0.3-1.0) Eosinophils # (Auto) 0.1 K/uL (0.0-0.5) Basophils # (Auto) 0.1 K/uL (0.0-0.1) Nucleated RBC Absolute Count (auto) 0.00 K/uL Sodium Level 142 mmol/L (137-145) Potassium Level 3.8 mmol/L (3.5-5.0) Chloride Level 103 mmol/L (98-107) Carbon Dioxide Level 28 mmol/L (22-31) Blood Urea Nitrogen 16 mg/dl (7-18) Creatinine 0.90 mg/dl (0.52-1.04) Glomerular Filtration Rate Calc > 60.0 Random Glucose 116 mg/dl (75-110) Calcium Level 9.3 mg/dl (8.4-10.2) Total Bilirubin 0.5 mg/dl (0.2-1.3) Aspartate Amino Transf (AST/SGOT) 21 U/L (0-35) Alanine Aminotransferase (ALT/SGPT) 22 U/L (0-56) Alkaline Phosphatase 82 U/L (0-126) Total Protein 7.2 g/dl (6.3-8.2) Albumin 4.1 g/dl (3.5-5.0) Lipase 174 U/L (23-300) Urine Color Yellow Urine Clarity Clear Urine pH 5.0 pH (4.8-9.5) Urine Specific [place] 1.018 Urine Protein Negative mg/dL (NEGATIVE) Urine Glucose (UA) Negative mg/dL (NEGATIVE) Urine Ketones Negative mg/dL (NEGATIVE) Urine Blood Negative (NEGATIVE) Urine Nitrite Negative (NEGATIVE) Urine Bilirubin Negative (NEGATIVE) Urine Urobilinogen 2.0 mg/dL (0.2-1.9) Urine Leukocyte Esterase Negative (NEGATIVE) Urine RBC None /HPF (0-2/HPF) Urine WBC 1 /HPF (0-5/HPF) Urine Squamous Epithelial Cells Many /LPF (</=FEW) Urine Bacteria Negative /HPF (NONE-FEW) Urine Mucus Few /HPF (NONE-FEW) Chemistry Test 06/16/18 14:25 06/16/18 14:50 White Blood Count 12.1 k/uL (4.5-11.0) Red Blood Count 4.64 M/uL (4.17-5.56) Hemoglobin 13.5 g/dL (12.0-16.0) Hematocrit 40.8 % (34.0-47.0) Mean Corpuscular Volume 87.9 fL (80.0-96.0) Mean Corpuscular Hemoglobin 29.1 pg (26.0-33.0) Mean Corpuscular Hemoglobin Concent 33.1 g/dL (32.0-36.0) Red Cell Distribution Width 15.7 % (11.5-14.5) Platelet Count 218 K/uL (150-450) Mean Platelet Volume 8.7 fL (7.2-11.1) Neutrophils (%) (Auto) 80.4 % (39.4-72.5) Lymphocytes (%) (Auto) 10.8 % (17.6-49.6) Monocytes (%) (Auto) 7.5 % (4.1-12.4) Eosinophils (%) (Auto) 0.9 % (0.4-6.7) Basophils (%) (Auto) 0.4 % (0.3-1.4) Nucleated RBC Relative Count (auto) 0.0 /100WBC Neutrophils # (Auto) 9.7 K/uL (2.0-7.4) Lymphocytes # (Auto) 1.3 K/uL (1.3-3.6) Monocytes # (Auto) 0.9 K/uL (0.3-1.0) Eosinophils # (Auto) 0.1 K/uL (0.0-0.5) Basophils # (Auto) 0.1 K/uL (0.0-0.1) Nucleated RBC Absolute Count (auto) 0.00 K/uL Glomerular Filtration Rate Calc > 60.0 Calcium Level 9.3 mg/dl (8.4-10.2) Total Bilirubin 0.5 mg/dl (0.2-1.3) Aspartate Amino Transf (AST/SGOT) 21 U/L (0-35) Alanine Aminotransferase (ALT/SGPT) 22 U/L (0-56) Alkaline Phosphatase 82 U/L (0-126) Total Protein 7.2 g/dl (6.3-8.2) Albumin 4.1 g/dl (3.5-5.0) Lipase 174 U/L (23-300) Urine Color Yellow Urine Clarity Clear Urine pH 5.0 pH (4.8-9.5) Urine Specific [place] 1.018 Urine Protein Negative mg/dL (NEGATIVE) Urine Glucose (UA) Negative mg/dL (NEGATIVE) Urine Ketones Negative mg/dL (NEGATIVE) Urine Blood Negative (NEGATIVE) Urine Nitrite Negative (NEGATIVE) Urine Bilirubin Negative (NEGATIVE) Urine Urobilinogen 2.0 mg/dL (0.2-1.9) Urine Leukocyte Esterase Negative (NEGATIVE) Urine RBC None /HPF (0-2/HPF) Urine WBC 1 /HPF (0-5/HPF) Urine Squamous Epithelial Cells Many /LPF (</=FEW) Urine Bacteria Negative /HPF (NONE-FEW) Urine Mucus Few /HPF (NONE-FEW) Urinalysis Test 06/16/18 14:50 Urine Color Yellow Urine Clarity Clear Urine pH 5.0 pH (4.8-9.5) Urine Specific [place] 1.018 Urine Protein Negative mg/dL (NEGATIVE) Urine Glucose (UA) Negative mg/dL (NEGATIVE) Urine Ketones Negative mg/dL (NEGATIVE) Urine Blood Negative (NEGATIVE) Urine Nitrite Negative (NEGATIVE) Urine Bilirubin Negative (NEGATIVE) Urine Urobilinogen 2.0 mg/dL (0.2-1.9) Urine Leukocyte Esterase Negative (NEGATIVE) Urine RBC None /HPF (0-2/HPF) Urine WBC 1 /HPF (0-5/HPF) Urine Squamous Epithelial Cells Many /LPF (</=FEW) Urine Bacteria Negative /HPF (NONE-FEW) Urine Mucus Few /HPF (NONE-FEW) EKG/Imaging Imaging PELVIS W W/O CONTRAST, ABDOMEN W W/O CONTRAST Provided history: abdominal pain Additional pertinent history: none TECHNIQUE: Multiplanar multisequence MRI of the abdomen and pelvis was performed without and with intravenous contrast Contrast dose: 15 mL of MultiHance. Additional focused sequences: none COMPARISON STUDIES: CT 01/10/18 FINDINGS: Lower chest: Negative Liver/biliary: Normal size and smooth surface. Mild diffuse loss of signal on the opposed phase series typical of mild diffuse hepatic steatosis. No concerning focal lesion. Gallbladder absent. Bile ducts are normal. A small benign-appearing cyst in segment 3 left lobe is stable. A 9 mm hypoenhancing focus in the posterior segment right lobe is unchanged from the CT and very likely benign. Pancreas: There are 2 very small somewhat bilobed appearing cyst projecting in the body the pancreas, best demonstrated on the coronal haste sequence. The more cephalad measures 5 x 11 mm and the more caudal 4 x 10 mm. Connection to the main duct cannot be established on this exam. There is no main duct dilation. These are difficult to identify on the CT due to isodensity. They are probably not new. Based upon the CT, I see no sequela of previous episodes of pancreatitis. Spleen: Negative Adrenal glands: Negative Kidneys/proximal ureter/retroperitoneum: Several benign-appearing cortical cysts. No suspect cortical lesions. No hydronephrosis. Stable minor perinephric changes. Genitourinary: Uterus is absent. There are no adnexal masses. There is a small volume of free fluid dependently in the pelvis, noncomplicated. Small bilobed cyst noted in the left ovary measuring only 7 x 14 mm. No solid adnexal masses. Bowel/peritoneum/mesenteries: Diverticulosis of the sigmoid colon with some adjacent T2 hyperintensity infiltrating surrounding fat likely indicating low- grade diverticulitis. This is somewhat difficult assessment due to extensive metallic artifact from the left hip. Vessels: Negative Musculoskeletal/body wall: Multilevel disc osteophyte complex in the lumbar spine results in potentially significant multilevel central stenosis. That is not fully assessed on this exam. Lymph nodes: negative IMPRESSION: 1. No acute inflammatory change in the abdomen. There are benign-appearing findings in the liver and kidneys. 2. Small cysts noted in the body of the pancreas without worrisome findings or high-risk stigmata. These are very likely benign but warrant follow-up. Repeat MRI in one year. 3. Diverticulosis and low-grade diverticulitis of the sigmoid colon. No abscess or obstruction. 4. Small very likely benign cysts of the left ovary. 5. Potentially significant central stenosis lumbar spine. Report Dictated By: Ayad Simmons MD at 06/16/2018 5:55 PM Report E-Signed By: Ayad Simmons MD at 06/16/2018 6:14 PM ED Course/Re-evaluation ED Course 73-year-old female presents to the emergency department with concerns of abdominal pain. History and physical examination obtained. Differential diagnoses considered and shared with the patient. The patient does have concern for ovarian cancer because she reports a significant family history. The patient was recommended to have a CBC, CMP, pancreatic enzymes checked, and UA to narrow differential diagnoses. However, the patient was informed that our CT is currently down. The patient stated understanding and decided to proceed with laboratory testing. Her CBC indicated leukocytosis with left shit. The patient agreed to continue evaluation with an MRI of the abdomen and pelvis. She was administered 50 mg of ketamine and Ativan x1 prior to MRI due to anxiety and claustrophobia. The MRI identified a left ovarian cyst, pancreatic cysts, diverticulitis, and lumbar spinal stenosis. Dr. Samayoa was consulted to discuss the significance of the ovarian cyst. Dr. Samayoa recommended a ovarian cancer antigen laboratory test be obtained and if positive to follow up in his office. The patient will be treated for diverticulitis with ciprofloxacin and Flagyl. She has further been encouraged to seek consultation from her physical therapist and orthopedics teacher regarding her lumbar spine stenosis. She has lastly been encouraged to obtian a follow up MRI as indicated by the radiologist to follow up on her pancreatic cysts. The patient and family state understanding and have no further questions at this time. We will call Mrs. Mccullough with the results of her laboratory test as soon as it is made available. Decision to Disposition Date: Jun 16, 2018 Decision to Disposition Time: 19:05 Depart Departure Latest Vital Signs Vital Signs Date Time Temp Pulse Resp B/P (MAP) Pulse Ox O2 Delivery O2 Flow Rate FiO2 06/16/18 18:45 83 91 Nasal Cannula 3 06/16/18 18:30 116/95 (102) 06/16/18 13:34 97.9 16 Impression: Primary Impression: Diverticulitis Additional Impressions: Left ovarian cyst Pancreatic cyst Lumbar spinal stenosis Condition: Improved Disposition: HOME OR SELF-CARE Referrals: RICHARD MCKEON MD (PCP) New Scripts Hydrocodone Bit/Acetaminophen (HYDROCODON-ACETAMINOPHEN 5-325) 1 Each Tablet 1 EACH PO Q4-6H Y for PAIN, #8 TAB Prov: ANAND SWANSON 06/16/18 Metronidazole (METRONIDAZOLE) 500 Mg Tablet 500 MG PO TID for 7 Days, #21 TAB Prov: ANAND SWANSON 06/16/18 Ciprofloxacin Hcl (CIPROFLOXACIN HCL) 500 Mg Tablet 500 MG PO Q12H for 7 Days, #14 TAB Prov: KIKIANAND [facility] 06/16/18 Patient Instructions: Cervical Spinal Stenosis (ED), Diverticulitis (ED), Ovarian Cyst (ED) Additional Instructions: Take ciprofloxacin once in the morning and once at night for seven days. Take Metronidazole once in the morning, once in the afternoon, and once at night for seven days. Be sure to drink lots of water while on the antibiotics. Be sure to eat something when taking the antibiotics. Consider eating [place] yogurt or drinking Kombucha to replenish healthy bacteria. We will call you with the results of the cancer antigen laboratory test within the next couple days (as soon as it is available). Continue to get your colonoscopies as directed. Continue your physical therapy for your lumbar spine and further consider orthopedic consultation if your back pain persists. Consider obtaining an MRI in one year to follow up on the cysts that were seen on your pancreas. Return to the emergency department if your condition does not improve or worsens. Problem Qualifiers Additional Impressions: Lumbar spinal stenosis Neurogenic claudication status: without neurogenic claudication Qualified Codes: M48.061 - Spinal stenosis, lumbar region without neurogenic claudication ANAND SWANSON [facility] Jun 16, 2018 13:59
[2018-06-16 14:57] LABS: PLATELET COUNT, AUTOMATED 218 K/uL (150-450)
[2018-06-16] MEDS: DIAZEPAM 10 MG TAB PO ONE ×2 (15:50→15:56)
[2018-06-16] MEDS ORDERED: KETAMINE HCL 500 MG/5 ML VIAL IVP ONE ×2 (16:10→16:30)
[2018-06-16] MEDS ORDERED: NS(*) 0.9% 1000 ML BAG 1,000 ML IV ONE (16:26)
[2018-06-16] MEDS ORDERED: GADOBENATE 529MG/1ML 15ML VIAL IVP ONE (16:26)
[2018-06-16] MEDS ORDERED: NS 0.9% 25 ML BAG 50 ML ONE (16:26)
[2018-06-16] MEDS ORDERED: ONDANSETRON 4 MG/2 ML VIAL IVP ONE (16:30)
[2018-06-16] MEDS ORDERED: LORazepam 2 MG/ML VIAL IVP ONE (16:35)
--- NOTE | 2018-06-16 18:18 | RADIOLOGY IMAGING REPORT ---
FACILITY: PATIENT NAME: Larissa Mccullough : 1945 MR: [id number] V: [id number] EXAM DATE: ORDERING PHYSICIAN: ANAND SWANSON TECHNOLOGIST: Location: [facility] Patient: Larissa Mccullough : 1945 Visit/Account:[id number] Date of Sevice: 06/16/2018 PELVIS W W/O CONTRAST, ABDOMEN W W/O CONTRAST Provided history: abdominal pain Additional pertinent history: none TECHNIQUE: Multiplanar multisequence MRI of the abdomen and pelvis was performed without and with i ntravenous contrast Contrast dose: 15 mL of MultiHance. Additional focused sequences: none COMPARISON STUDIES: CT 01/10/18 FINDINGS: Lower chest: Negative Liver/biliary: Normal size and smooth surface. Mild diffuse loss of signal on the opposed phase serie s typical of mild diffuse hepatic steatosis. No concerning focal lesion. Gallbladder absent. Bile priscilla ts are normal. A small benign-appearing cyst in segment 3 left lobe is stable. A 9 mm hypoenhancing f ocus in the posterior segment right lobe is unchanged from the CT and very likely benign. Pancreas: There are 2 very small somewhat bilobed appearing cyst projecting in the body the pancreas, best demonstrated on the coronal haste sequence. The more cephalad measures 5 x 11 mm and the more c audal 4 x 10 mm. Connection to the main duct cannot be established on this exam. There is no main priscilla t dilation. These are difficult to identify on the CT due to isodensity. They are probably not new. B ased upon the CT, I see no sequela of previous episodes of pancreatitis. Spleen: Negative Adrenal glands: Negative Kidneys/proximal ureter/retroperitoneum: Several benign-appearing cortical cysts. No suspect cortical lesions. No hydronephrosis. Stable minor perinephric changes. Genitourinary: Uterus is absent. There are no adnexal masses. There is a small volume of free fluid dependently in the pelvis, noncomplicated. Small bilobed cyst noted in the left ovary measuring only 7 x 14 mm. No solid adnexal masses. Bowel/peritoneum/mesenteries: Diverticulosis of the sigmoid colon with some adjacent T2 hyperintensit y infiltrating surrounding fat likely indicating low-grade diverticulitis. This is somewhat difficult assessment due to extensive metallic artifact from the left hip. Vessels: Negative Musculoskeletal/body wall: Multilevel disc osteophyte complex in the lumbar spine results in potentia lly significant multilevel central stenosis. That is not fully assessed on this exam. Lymph nodes: negative IMPRESSION: 1. No acute inflammatory change in the abdomen. There are benign-appearing findings in the liver and kidneys. 2. Small cysts noted in the body of the pancreas without worrisome findings or high-risk stigmata. Th benedict are very likely benign but warrant follow-up. Repeat MRI in one year. 3. Diverticulosis and low-grade diverticulitis of the sigmoid colon. No abscess or obstruction. 4. Small very likely benign cysts of the left ovary. 5. Potentially significant central stenosis lumbar spine. Report Dictated By: Ayad Simmons MD at 06/16/2018 5:55 PM Report E-Signed By: Ayad Simmons MD at 06/16/2018 6:14 PM WSN:[id number]
--- NOTE | 2018-06-16 18:18 | RADIOLOGY IMAGING REPORT ---
FACILITY: [facility] PATIENT NAME: Larissa Mccullough : 1945 MR: [id number] V: [id number] EXAM DATE: ORDERING PHYSICIAN: ANAND SWANSON TECHNOLOGIST: Location: [facility] [place] Patient: Larissa Mccullough : 1945 Visit/Account:[id number] Date of Sevice: 06/16/2018 PELVIS W W/O CONTRAST, ABDOMEN W W/O CONTRAST Provided history: abdominal pain Additional pertinent history: none TECHNIQUE: Multiplanar multisequence MRI of the abdomen and pelvis was performed without and with i ntravenous contrast Contrast dose: 15 mL of MultiHance. Additional focused sequences: none COMPARISON STUDIES: CT 01/10/18 FINDINGS: Lower chest: Negative Liver/biliary: Normal size and smooth surface. Mild diffuse loss of signal on the opposed phase serie s typical of mild diffuse hepatic steatosis. No concerning focal lesion. Gallbladder absent. Bile priscilla ts are normal. A small benign-appearing cyst in segment 3 left lobe is stable. A 9 mm hypoenhancing f ocus in the posterior segment right lobe is unchanged from the CT and very likely benign. Pancreas: There are 2 very small somewhat bilobed appearing cyst projecting in the body the pancreas, best demonstrated on the coronal haste sequence. The more cephalad measures 5 x 11 mm and the more c audal 4 x 10 mm. Connection to the main duct cannot be established on this exam. There is no main priscilla t dilation. These are difficult to identify on the CT due to isodensity. They are probably not new. B ased upon the CT, I see no sequela of previous episodes of pancreatitis. Spleen: Negative Adrenal glands: Negative Kidneys/proximal ureter/retroperitoneum: Several benign-appearing cortical cysts. No suspect cortical lesions. No hydronephrosis. Stable minor perinephric changes. Genitourinary: Uterus is absent. There are no adnexal masses. There is a small volume of free fluid dependently in the pelvis, noncomplicated. Small bilobed cyst noted in the left ovary measuring only 7 x 14 mm. No solid adnexal masses. Bowel/peritoneum/mesenteries: Diverticulosis of the sigmoid colon with some adjacent T2 hyperintensit y infiltrating surrounding fat likely indicating low-grade diverticulitis. This is somewhat difficult assessment due to extensive metallic artifact from the left hip. Vessels: Negative Musculoskeletal/body wall: Multilevel disc osteophyte complex in the lumbar spine results in potentia lly significant multilevel central stenosis. That is not fully assessed on this exam. Lymph nodes: negative IMPRESSION: 1. No acute inflammatory change in the abdomen. There are benign-appearing findings in the liver and kidneys. 2. Small cysts noted in the body of the pancreas without worrisome findings or high-risk stigmata. Th benedict are very likely benign but warrant follow-up. Repeat MRI in one year. 3. Diverticulosis and low-grade diverticulitis of the sigmoid colon. No abscess or obstruction. 4. Small very likely benign cysts of the left ovary. 5. Potentially significant central stenosis lumbar spine. Report Dictated By: Ayad Simmons MD at 06/16/2018 5:55 PM Report E-Signed By: Ayad Simmons MD at 06/16/2018 6:14 PM WSN:[id number]
[2018-06-16 18:30] VITALS: BP 116/95
[2018-06-16] MEDS ORDERED: METR-160 PO (19:01)
[2018-06-16] MEDS ORDERED: CIPR-214 PO (19:01)
[2018-06-16] MEDS ORDERED: HYDR-385 PO (19:01)
[2018-06-16] MEDS ORDERED: CIPROFLOXACIN 500 MG TAB PO ONE (19:05)
[2018-06-16] MEDS ORDERED: ACET/HYDROC 5/325MG TH ER ONLY 2 TAB/BOTTLE PO ONE (19:05)
[2018-06-16] MEDS ORDERED: metroNIDAZOLE 250 MG TAB TH 2 TAB/BOTTLE PO ONE (19:05)
== END 2018-06-16 19:27 | disposition home or self-care (01) ==
LOC: ER 13:41
DX: K57.32 Diverticulitis of large intestine without perforation or abscess without bleeding (principal); N83.202 Unspecified ovarian cyst, left side; K86.2 Cyst of pancreas; M48.061 Spinal stenosis, lumbar region without neurogenic claudication; Z80.41 Family history of malignant neoplasm of ovary
CPT/HCPCS: 72197; 74183; 81001; 83690; 85025; 86304; 96361; 96374; 96375; 99284; A9270; A9577; J2060; J2405; J7030; 82040; 82247; 82310; 82374; 82435; 82565; 82947; 84075; 84132; 84155; 84295; 84450; 84460; 84520

== ENCOUNTER → 2018-08-27 | Outpatient (CLI) | payer MEDICARE ==
[2017-12-09 09:17] VITALS: BMI 39.0
[~2018-08-27] MED LIST changes: +AZIT-1 PO; -METF-411 PO; +METF-450 PO
[2018-08-27 09:05] LABS: PLATELET COUNT, AUTOMATED 211 K/uL (150-450)
== END ==
LOC: LAB 08:37
PROVIDERS: ATTEND Emergency Medicine
DX: Z01.818 Encounter for other preprocedural examination (principal); G47.33 Obstructive sleep apnea (adult) (pediatric); E11.9 Type 2 diabetes mellitus without complications; I10 Essential (primary) hypertension
CPT/HCPCS: 82040; 82247; 82310; 82374; 82435; 82565; 82947; 84075; 84132; 84155; 84295; 84450; 84460; 84520; 85025

== ENCOUNTER → 2018-08-27 | Outpatient (CLI) | payer MEDICARE ==
[2017-12-09 09:17] VITALS: BMI 39.0
--- NOTE | 2018-08-27 09:18 | EKG ---
FACILITY: [facility] - [place], [place] PATIENT NAME: PAOLA HOOK : [id number] MR: [id number] V: [id number] EXAM DATE: ORDERING PHYSICIAN: CT BOONE TECHNOLOGIST: Test Reason : PRE-OP Blood Pressure : / mmHG Vent. Rate : 073 BPM Atrial Rate : 073 BPM P-R Int : 150 ms QRS Dur : 086 ms QT Int : 420 ms P-R-T Axes : 028 000 080 degrees QTc Int : 462 ms Normal sinus rhythm Low voltage QRS Septal infarct , age undetermined Abnormal ECG Confirmed by RITA CUNHA ([id number]) on 08/27/2018 10:13:27 AM Referred By: Confirmed By:RITA CUNHA
--- NOTE | 2018-08-27 14:02 | RADIOLOGY IMAGING REPORT ---
FACILITY: [facility] - [place] PATIENT NAME: Larissa Mccullough : 1945 MR: [id number] V: [id number] EXAM DATE: ORDERING PHYSICIAN: CT BOONE TECHNOLOGIST: Location: [facility] - [place] Patient: Larissa Mccullough : 1945 Visit/Account:[id number] Date of Sevice: 08/27/2018 CHEST PA AND LAT INDICATION: PRE OP EVALUATION, HAS SLEEP APNEA COMPARISON: 11/30/2017 FINDINGS: Heart size within normal limits. There is no focal infiltrate or lobar consolidation. There is no pneumothorax or pleural effusion. IMPRESSION: 1. No acute cardiopulmonary process. Report Dictated By: Rowdy Leos at 08/27/2018 1:58 PM Report E-Signed By: Rowdy Leos at 08/27/2018 1:58 PM WSN:[id number]
== END ==
LOC: LAB 08:46
PROVIDERS: ATTEND Otolaryngology
DX: Z01.818 Encounter for other preprocedural examination (principal); E55.9 Vitamin D deficiency, unspecified; I10 Essential (primary) hypertension; E11.9 Type 2 diabetes mellitus without complications; G47.33 Obstructive sleep apnea (adult) (pediatric)
CPT/HCPCS: 36415; 71046; 82465; 83036; 83718; 84443; 84478; 93005

== ENCOUNTER 2018-09-20 00:45 | Observation (INO) | payer MEDICARE ==
[2017-12-09 09:17] VITALS: Ht 165.1 cm; Wt 105.2 kg
[2018-09-20] VITALS (12 sets, daily range): BP systolic 101–165; BP diastolic 47–106
[~2018-09-20] VITALS: Ht 165.1 cm; Wt 105.2 kg
[~2018-09-20 00:45] MED LIST changes: +CHOL10005 PO; -HYDR-4308 PO; +HYDR-654 PO
[2018-09-20] MEDS ORDERED: FAMOTIDINE 20 MG TAB PO ONE (09:20)
[2018-09-20] MEDS ORDERED: NORMOSOL R SOLN(*) 1000 ML BAG 1,000 ML IV PRN ×2 (09:20→11:30)
[2018-09-20] MEDS ORDERED: MIDAZOLAM 2 MG/2 ML VIAL IVP PRN (09:20)
[2018-09-20] MEDS ORDERED: LIDOCAINE/SOD BICARB 8.4% SYR ID ONE (09:20)
[2018-09-20] MEDS ORDERED: CLINDAMYCIN(*) 600 MG/NS 50 ML 50 ML IVPB ONE (11:00)
[2018-09-20] MEDS ORDERED: LIDOCAINE 2% IV 100 MG/5ML SYR ONE (11:10)
[2018-09-20] MEDS ORDERED: fentaNYL CITR 250 MCG/5 ML AMP ONE (11:11)
[2018-09-20] MEDS ORDERED: PROPOFOL EMUL(*) 10MG/ML 20 ML 20 ML ONE ×2 (11:12→13:30)
[2018-09-20] MEDS ORDERED: BACITRACIN OINT 15 GM TUBE TP ONE (11:59)
[2018-09-20] MEDS ORDERED: LIDO/EPI 1% MDV 1:100,000 20ML INFIL ONE (11:59)
[2018-09-20] MEDS ORDERED: LR(*) 1000 ML BAG 1,000 ML IV PRN (12:25)
[2018-09-20] MEDS ORDERED: ONDANSETRON 4 MG ODT TABDP SL PRN (12:25)
[2018-09-20] MEDS ORDERED: ACETAMINOPHEN 325 MG TAB PO PRN (12:25)
[2018-09-20] MEDS ORDERED: APAP/HYDROCODONE 325/5 TAB PO PRN (12:25)
--- NOTE | 2018-09-20 12:25 | Post Operative Note ---
Operative Note - ENT Operative Day Date: Sep 20, 2018 Physicians Surgeon: Bandar Roof Mechanic: Nga Mcgee Anesthesia: GETA Diagnosis Pre-Op Diagnosis: right parotid mass Post-Op Diagnosis: same Procedure Procedure(s): right parotidectomy Specimen Removed:(Maybe N/A): right parotid mass Complications: none Fluids Fluids: see anesthesia note Estimated Blood Loss: [address] BOONE JR, MD Sep 20, 2018 12:25
[2018-09-20] MEDS ORDERED: SUCCINYLCHOL CHL 200MG/10ML VL ONE (12:30)
[2018-09-20] MEDS ORDERED: DEXAMETHASONE SOD 4 MG/ML VIAL ONE (12:35)
[2018-09-20] MEDS ORDERED: ONDANSETRON 4 MG/2 ML VIAL ONE (12:43)
[2018-09-20] MEDS ORDERED: KETAMINE HCL 200 MG/20 ML MDV ONE (12:51)
[2018-09-20] MEDS ORDERED: fentaNYL CITR 100 MCG/2 ML AMP ONE (13:25)
[2018-09-20] MEDS ORDERED: PROMETHAZINE 25 MG/ML 1 ML AMP ONE (15:05)
[2018-09-20] MEDS: INSULIN HUM LISPRO 100 UN/ML 3 ML VIAL SUBQ PRN ×2 (17:14→21:11)
[2018-09-20] MEDS ORDERED: CLINDAMYCIN(*) 600 MG/4 ML ADD 600 MG in DEXTROSE 5% 50 ML BAG 50 ML IVPB SCH (18:00)
[2018-09-20] MEDS: CLINDAMYCIN(*) 600 MG/NS 50 ML 50 ML IVPB SCH (18:22)
[2018-09-20] MEDS: LISINOPRIL 10 MG TAB PO SCH (21:11)
[2018-09-20] MEDS: BACITRACIN OINT 0.9 GM PKT TP SCH (21:11)
[2018-09-21] VITALS: BP 105/50
[2018-09-21] MEDS: CLINDAMYCIN(*) 600 MG/NS 50 ML 50 ML IVPB SCH ×2 (00:16→06:10)
--- NOTE | 2018-09-21 02:01 | OPERATIVE REPORT 1 ---
EVENT DATE: September 20, 2018 SURGEON: Navi Portillo Jr., MD ANESTHESIOLOGIST: Jake Ellsworth MD ANESTHESIA: General endotracheal. DYNO TECHNICIAN: Nga Mcgee, RN EMERGENCY ROOM, [facility] PREOPERATIVE DIAGNOSIS Right parotid mass. POSTOPERATIVE DIAGNOSIS Right parotid mass. PROCEDURE PERFORMED Right superficial parotidectomy with preservation of the facial nerve. ESTIMATED BLOOD LOSS 100 mL. COMPLICATIONS None. INDICATIONS Please refer to the preoperative note. DESCRIPTION OF PROCEDURE The patient was positively identified in the preoperative area. She was accompanied there by her . Risks were again explained, including but not limited to bleeding, infection, injury to the facial nerve, transient or permanent facial palsy, and those associated with anesthesia. She acknowledged understanding of those risks. She was then brought back to the operative suite, laid supine on the operating table, and anesthesia was administered. Once asleep, patient was positioned and prepped and draped in the usual sterile fashion. Of note, the facial nerve monitor was applied to the patient and utilized throughout the case. A facelift incision was planned extending from the preauricular crease around the lobule and into a favorable neck crease greater than two finger breadths below the angle of mandible. Approximately 2 mL of 1% lidocaine with epinephrine was then infiltrated. The aforementioned incision was then made with a #15 blade. The underlying subcutaneous tissue was then dissected with the Bovie electrocautery. I then dissected the soft tissue envelope off of the periparotid fascia. The digastric muscle was identified and utilized as a landmark. I then dissected deeply into the area of the facial nerve until this was encountered. This was confirmed with the facial nerve probe. I then carefully traced the nerve to the pes. The mass seemed to involve only a portion of the parotid gland involving the upper division of the nerve. I then carefully dissected the upper nerve division and resected the mass with a cuff of normal tissue. This was sent for permanent pathology. The wound bed was then copiously irrigated with normal saline solution. A Valsalva maneuver was performed. Hemostasis was assumed. Morteza-Joya drain was placed. The skin was then closed in a multilayer fashion. The patient was then turned to Anesthesia for emergence. CRYSTAL
[2018-09-21 03:27] VITALS: BP 135/71
[2018-09-21] MEDS ORDERED: LEVOTHYROXINE SOD 0.05 MG TAB PO SCH (06:00)
[2018-09-21 06:50] VITALS: BP 126/63
[2018-09-21] MEDS: INSULIN HUM LISPRO 100 UN/ML 3 ML VIAL SUBQ PRN (07:46)
[2018-09-21] MEDS ORDERED: BACOUD TP (07:55)
[2018-09-21] MEDS ORDERED: CEFU500T10 PO (07:55)
--- NOTE | 2018-09-21 07:57 | Short(Outpt) Discharge Summary ---
Discharge Summary Reason for Hosp/Final Diag: (1) Parotid mass Status: Resolved Hospital Course & Plan: Status post right superficial parotidectomy. Ivanna reg diet. Pain controlled. Departure Discharge to: Home Discharge Instructions Home Meds Active Scripts Blood Sugar Diagnostic (ULTIMA) 1 Each Strip, 1 EACH MC DAILY, #100 STRIP 3 Refills Use one strip daily to test blood sugar Prov:RICHARD MCKEON MD 09/03/18 Furosemide (FUROSEMIDE) 20 Mg Tablet, 1 TAB PO DIRECTED, #36 TAB 3 Refills Three times a week Prov:RICHARD MCKEON MD 06/25/18 Pravastatin Sodium (PRAVASTATIN SODIUM) 80 Mg Tablet, 80 MG PO QHS, #90 TAB 3 Refills Prov:RICHARD MCKEON MD 04/16/18 Sitagliptin Phosphate (JANUVIA) 50 Mg Tablet, 50 MG PO QDAY, #90 TAB 3 Refills Prov:RICHARD MCKEON MD 03/01/18 Lancets (Relion Thin) 1 Each Each, BOX ASDIRECTED DAILY, #1 3 Refills Test blood sugar daily Prov:RICHARD MCKEON MD 09/30/17 Metformin Hcl (METFORMIN HCL) 500 Mg Tablet, 1 TAB PO BID, #180 TAB 4 Refills Prov:RICHARD MCKEON MD 09/30/17 Allopurinol (Allopurinol) 300 Mg Tablet, 1 TAB PO DAILY, #90 TAB 3 Refills Prov:RICHARD MCKEON MD 09/30/17 Lisinopril (LISINOPRIL) 10 Mg Tablet, 1 TAB PO BID, #180 TAB 3 Refills Prov:RICHARD MCKEON MD 09/30/17 Levothyroxine Sodium (LEVOTHYROXINE SODIUM) 50 Mcg Tablet, 1 TAB PO QDAY, #90 TAB 3 Refills Prov:RICHARD MCKEON MD 09/30/17 [Relion Ultima] No Conflict Check, 1 STRIP ASDIRECTED DAILY, #1 BOX 12 Refills Test blood sugar daily Prov:RICHARD MCKEON MD 04/30/17 Reported Medications Cholecalciferol (Vitamin D3) (VITAMIN D3) 1,000 Unit Tablet, 2000 UNIT PO QDAY, TAB 09/06/18 Cyanocobalamin (Vitamin B-12) (VITAMIN B-12) 2,000 Mcg Tablet.er, 1 TAB PO DAILY 04/30/17 Aspirin (ASPIR-LOW) 81 Mg Tablet.dr, 1 TAB PO QDAY, TAB 07/24/15 Diet: Regular Activity: No Heavy Lifting, No Exertion Special Instructions: keep incision clean. apply antibiotic ointment BID. follow up at scheduled nursing appointment next thursday. CT BOONE JR, MD Sep 21, 2018 07:57
[2018-09-21] MEDS: LISINOPRIL 10 MG TAB PO SCH (08:45)
[2018-09-21] MEDS: BACITRACIN OINT 0.9 GM PKT TP SCH (08:46)
[2018-09-21] MEDS ORDERED: metFORMIN HCL 500 MG TAB PO SCH (09:00)
[2018-09-21] MEDS ORDERED: HYDR-385 PO (09:06)
== END 2018-09-21 09:01 | disposition home or self-care (01) ==
LOC: OR 00:45 → MED 17:05
PROVIDERS: ADMIT Otolaryngology; ATTEND Otolaryngology
DX: K11.8 Other diseases of salivary glands (principal); E11.9 Type 2 diabetes mellitus without complications
CPT/HCPCS: 36416; 42410; 82948; 88305; 94667; 96372; A9270; G0378; J0330; J1100; J1815; J2001; J2250; J2405; J2550; J2704; J3010; J3490; C9399

== ENCOUNTER 2018-11-24 00:19 | Day surgery (SDC) | payer MEDICARE ==
[2017-12-09 09:17] VITALS: Ht 165.1 cm; Wt 102.5 kg
[~2018-11-24] VITALS: Ht 165.1 cm; Wt 102.5 kg
[~2018-11-24 00:19] MED LIST changes: +ASPI81TA94 PO; +BACOUD TP; +CEFU500T10 PO; -METR-160 PO; +METR500T54 PO
[2018-11-24] MEDS ORDERED: PROPOFOL EMUL(*) 10MG/ML 20 ML 40 ML ONE (06:58)
[2018-11-24] MEDS ORDERED: NORMOSOL R SOLN(*) 1000 ML BAG 1,000 ML IV PRN (08:00)
[2018-11-24] MEDS ORDERED: LIDOCAINE/SOD BICARB 8.4% SYR ID ONE (08:00)
[2018-11-24 08:13] VITALS: BP 156/80
[2018-11-24] MEDS ORDERED: PROPOFOL EMUL(*) 10MG/ML 20 ML 20 ML ONE (09:10)
[2018-11-24 09:35] VITALS: BP 126/81
--- NOTE | 2018-11-24 09:43 | Short(Outpt) Discharge Summary ---
Discharge Summary Reason for Hosp/Final Diag: (1) H/O diverticulitis of colon Status: Chronic Hospital Course & Plan: Colonoscopy with polyp x2 completed without problems. Departure Discharge to: Home, Self Care Discharge Instructions Home Meds Active Scripts Metformin Hcl (METFORMIN HCL) 500 Mg Tablet, 1 TAB PO BID, #180 TAB 3 Refills Prov:RICHARD MCKEON MD 11/11/18 Lisinopril (LISINOPRIL) 10 Mg Tablet, 1 TAB PO BID, #180 TAB 3 Refills Prov:RICHARD MCKEON MD 10/20/18 Blood Sugar Diagnostic (ULTIMA) 1 Each Strip, 1 EACH MC DAILY, #100 STRIP 3 Refills Use one strip daily to test blood sugar Prov:RICHARD MCKEON MD 09/03/18 Furosemide (FUROSEMIDE) 20 Mg Tablet, 1 TAB PO DIRECTED, #36 TAB 3 Refills Three times a week Prov:RICHARD MCKEON MD 06/25/18 Pravastatin Sodium (PRAVASTATIN SODIUM) 80 Mg Tablet, 80 MG PO QHS, #90 TAB 3 Refills Prov:RICHARD MCKEON MD 04/16/18 Sitagliptin Phosphate (JANUVIA) 50 Mg Tablet, 50 MG PO QDAY, #90 TAB 3 Refills Prov:RICHARD MCKEON MD 03/01/18 Lancets (Relion Thin) 1 Each Each, BOX ASDIRECTED DAILY, #1 3 Refills Test blood sugar daily Prov:RICHARD MCKEON MD 09/30/17 Allopurinol (Allopurinol) 300 Mg Tablet, 1 TAB PO DAILY, #90 TAB 3 Refills Prov:RICHARD MCKEON MD 09/30/17 Levothyroxine Sodium (LEVOTHYROXINE SODIUM) 50 Mcg Tablet, 1 TAB PO QDAY, #90 TAB 3 Refills Prov:RICHARD MCKEON MD 09/30/17 [Relion Ultima] No Conflict Check, 1 STRIP ASDIRECTED DAILY, #1 BOX 12 Refills Test blood sugar daily Prov:RICHARD MCKEON MD 04/30/17 Reported Medications Aspirin (ASPIRIN) 81 Mg Tab.chew, 81 MG PO QDAY, TAB.CHEW 10/18/18 Cholecalciferol (Vitamin D3) (VITAMIN D3) 1,000 Unit Tablet, 2000 UNIT PO QDAY, TAB 09/06/18 Cyanocobalamin (Vitamin B-12) (VITAMIN B-12) 2,000 Mcg Tablet.er, 1 TAB PO DAILY 04/30/17 Diet: Regular Activity: As Tolerated Special Instructions: Your colonoscopy was completed without problems and your prep was excellent (Good Job!!). I removed 2 small polyps from your colon and they were sent to pathology. My office will call you in the next week or 2 to discuss the pathology results with you and let you know when your next colonoscopy should be (either 5 or 10 years) depening the pathology results. ALAN JAIMES MD Nov 24, 2018 09:43
[2018-11-24 09:45] VITALS: BP 138/82
[2018-11-24 10:01] VITALS: BP 136/87
[2018-11-24 10:03] VITALS: BP 138/70
--- NOTE | 2018-11-24 11:38 | NUR ---
0935 PT RECEIVED IN SD BY Aren BARRON RN, FIRST VITALS AND ASSESSMENT DONE BY Aren BARRON. HANDOFF GIVEN TO Arvind DUKE RN 1045 VSS, PT STILL RESTING IN L LATERAL POSITION, DOWN TO 4L MASK 0954 DOWN TO 2L MASK 1001 PT BEGAN ORTHOSTATICS TO GET UP AND USE RESTROOM, STABLE, DOWN TO 1L 1003 ON ROOM AIR SATTING WELL 1010 PT PLACED BACK ON 1L PREVENTATIVELY AFTER RETURNING FROM RESTROOM, TOLERATING COFFEE 1015 TOLERATING CRACKERS, SIT AT SIDE OF BED 1020 PT UP TO RESTROOM AGAIN WITH HELP OF DAUGHTERGITA, D/C'D IV 1025 D/C INSTRUCTIONS COVERED, NO QUESTIONS AT THIS TIME, WALKED TO CAR OUTSIDE OF PATIENT ADMITTING, SELF TRANSFERRED TO VEHICLE WITHOUT INCIDENT, ALL BELONGINGS WITH PT.
== END 2018-11-24 10:25 | disposition home or self-care (01) ==
LOC: OR 00:19
PROVIDERS: ATTEND Surgery
DX: D12.3 Benign neoplasm of transverse colon (principal); K57.92 Diverticulitis of intestine, part unspecified, without perforation or abscess without bleeding; E11.9 Type 2 diabetes mellitus without complications; E03.9 Hypothyroidism, unspecified; M10.9 Gout, unspecified; E66.01 Morbid (severe) obesity due to excess calories; Z68.37 Body mass index [BMI] 37.0-37.9, adult; E78.5 Hyperlipidemia, unspecified; G47.33 Obstructive sleep apnea (adult) (pediatric); K21.9 Gastro-esophageal reflux disease without esophagitis; Z85.3 Personal history of malignant neoplasm of breast
CPT/HCPCS: 00811; 36416; 45380; 82948; 88305; J2704

== ENCOUNTER → 2019-03-07 | Outpatient (CLI) | payer MEDICARE ==
[2017-12-09 09:17] VITALS: BMI 39.0
[~2019-03-07] MED LIST changes: +METR500T15 PO; -METR500T54 PO; -ROSU20TA23 PO; +ROSU20TA24 PO
== END ==
LOC: LAB 08:06
PROVIDERS: ATTEND Emergency Medicine
DX: E11.9 Type 2 diabetes mellitus without complications (principal)
CPT/HCPCS: 36415; 83036

== ENCOUNTER → 2019-03-11 | Outpatient (CLI) | payer MEDICARE ==
[2017-12-09 09:17] VITALS: BMI 39.0
[~2019-03-11] MED LIST changes: +METF-452 PO
== END ==
LOC: LAB 10:10
PROVIDERS: ATTEND Emergency Medicine
DX: R10.9 Unspecified abdominal pain (principal)
CPT/HCPCS: 81001

== ENCOUNTER → 2019-03-17 | Outpatient (CLI) | payer MEDICARE ==
[2017-12-09 09:17] VITALS: BMI 39.0
[~2019-03-17] MED LIST changes: +DIA5 PO; +GADOBENATE 529MG/1ML 15ML VIAL IVP ONE; +NS(*) 0.9% 50 ML BAG 50 ML ONE
--- NOTE | 2019-03-17 10:37 | RADIOLOGY IMAGING REPORT ---
FACILITY: [facility] - [place] PATIENT NAME: Larissa Mccullough : 1945 MR: [id number] V: [id number] EXAM DATE: ORDERING PHYSICIAN: RICHARD MCKEON TECHNOLOGIST: Location: [facility] - [place] Patient: Larissa Mccullough : 1945 Visit/Account:[id number] Date of Sevice: 03/17/2019 MR ABDOMEN W & W/O CON HISTORY: Abnormal MRI in 06/09 ADDITIONAL HISTORY: None. TECHNIQUE: TECHNIQUE: Multiplanar multisequence magnetic resonance imaging of the abdomen with and without intravenous contrast. CONTRAST: 15 mL of MultiHance COMPARISON: MR the abdomen June 16, 2018 FINDINGS: Visualized lung bases: Grossly unremarkable. Liver: Mild diffuse hepatic steatosis again noted. Small cyst in the lateral segment left lobe of th e liver appears unchanged. The previously noted 9 mm hypoattenuating focus in the posterior segment of the right lobe appears unchanged when compared to the prior CT dating back to January 10, 2018 an d is likely a small hemangioma. Gallbladder: Surgically removed Bile ducts: Nondistended and unremarkable. Spleen: Negative. Adrenal glands: Negative. Pancreas: Two small bilobed appearing cystic structures within the body the pancreas appear unchanged . Connection to the main pancreatic duct does not definitively be made.. The main pancreatic duct i s not dilated. Kidneys: Benign-appearing cortical cysts again noted bilaterally. There is mild perinephric strandin g appears unchanged Vessels/spaces/nodes: No bulky adenopathy or ascities. Visualized GI: There is diverticulosis of the left-sided the colon Bones/soft tissues: There spondylotic changes of the thoracolumbar spine IMPRESSION: Benign-appearing lesions again seen in the liver and kidneys. Small bilobed cystic structures in the body the pancreas have remained stable when compared to 2017 connection to the main pancreatic duct demonstrated. This likely represent benign cystic masses. Possibility of a slow growing intraductal papillary mucinous tumor totally ruled out althou gh seems less likely given the lack of pancreatic duct dilatation.. A one-year follow-up MR is recom mended for further evaluation Report Dictated By: Sonal Patino MD at 03/17/2019 9:42 AM Report E-Signed By: Sonal Patino MD at 03/17/2019 10:32 AM KRISTIANN:PAUL
== END ==
LOC: MRI 00:49
PROVIDERS: ATTEND Emergency Medicine
DX: K76.0 Fatty (change of) liver, not elsewhere classified (principal); Z90.49 Acquired absence of other specified parts of digestive tract; N28.1 Cyst of kidney, acquired; K57.30 Diverticulosis of large intestine without perforation or abscess without bleeding; M47.895 Other spondylosis, thoracolumbar region
CPT/HCPCS: 74183; A9577; J7050

== ENCOUNTER → 2019-03-22 | Outpatient (CLI) | payer MEDICARE ==
[2017-12-09 09:17] VITALS: BMI 39.0
[~2019-03-22] MED LIST changes: -GADOBENATE 529MG/1ML 15ML VIAL IVP ONE; -NS(*) 0.9% 50 ML BAG 50 ML ONE
== END ==
LOC: RESP 08:24
PROVIDERS: ATTEND Emergency Medicine
DX: R09.02 Hypoxemia (principal)
CPT/HCPCS: 94060; 94726; 94729

== ENCOUNTER 2019-03-30 21:47 | Observation (INO) | payer MEDICARE ==
[~2019-03-30] VITALS: Ht 139.7 cm; Wt 105.8 kg
--- NOTE | 2019-03-30 21:50 | ER Report ---
History and Physical Time Seen By MD: 21:50 HPI/ROS CHIEF COMPLAINT: Abdominal pain HISTORY OF PRESENT ILLNESS: 73-year-old female presents ambulatory to the ER complaining of abdominal pain across her upper epigastrium radiating to her lower quadrants and around to her back on the right side. Patient was seen by Dr. Causey approximately one week ago for an annual wellness examination. Patient had an MRI of her abdomen done to follow-up. Pancreatic lesion. It's thought to be benign. A repeat MRI was unremarkable and unchanged from previous. Radiology recommended a follow-up MRI in 1 year. Patient george presents with increase in her pain for the last 2 days. She is very uncomfortable. She notes palpitations of her heart. She notes no shortness of breath, productive cough or fevers. She notes no nausea, vomiting, diarrhea or constipation. She denies dysuria, frequency or hematuria. Patient notes some occasional diarrhea that she attributes to taking metformin REVIEW OF SYSTEMS: Respiratory: No cough, no dyspnea. Cardiovascular: No chest pain, no palpitations. Gastrointestinal: As above Musculoskeletal: No back pain. Allergies: Coded Allergies: rosuvastatin (Verified Allergy, Intermediate, Left neck pain , 03/30/19) morphine (Verified Allergy, Mild, 03/30/19) codeine (Verified Adverse Reaction, Mild, VOMITING, 03/30/19) amoxicillin (Verified Adverse Reaction, Unknown, JERKING, 03/30/19) clavulanic acid (Verified Adverse Reaction, Unknown, JERKING, 03/30/19) doxycycline (Verified Adverse Reaction, Unknown, JERKING, 03/30/19) Home Meds Active Scripts Metformin Hcl (METFORMIN HCL) 1,000 Mg Tablet, 1.5 TAB PO DAILY, #180 TAB 3 R efills 500 mg QAM, 1000 mg QPM Prov:RICHARD CAUSEY MD 03/16/19 Pravastatin Sodium (PRAVASTATIN SODIUM) 80 Mg Tablet, 80 MG PO QHS, #90 TAB 3 Refills Prov:RICHARD CAUSEY MD 01/26/19 Allopurinol (Allopurinol) 300 Mg Tablet, 1 TAB PO DAILY, #90 TAB 3 Refills Prov:RICHARD CAUSEY MD 12/08/18 Levothyroxine Sodium (LEVOTHYROXINE SODIUM) 50 Mcg Tablet, 1 TAB PO QDAY, #90 TAB 3 Refills Prov:RICHARD CAUSEY MD 12/07/18 Lisinopril (LISINOPRIL) 10 Mg Tablet, 1 TAB PO BID, #180 TAB 3 Refills Prov:RICHARD CAUSEY MD 10/20/18 Blood Sugar Diagnostic (ULTIMA) 1 Each Strip, 1 EACH MC DAILY, #100 STRIP 3 Refills Use one strip daily to test blood sugar Prov:RICHARD CAUSEY MD 09/03/18 Furosemide (FUROSEMIDE) 20 Mg Tablet, 1 TAB PO DIRECTED, #36 TAB 3 Refills Three times a week Prov:RICHARD CAUSEY MD 06/25/18 Sitagliptin Phosphate (JANUVIA) 50 Mg Tablet, 50 MG PO QDAY, #90 TAB 3 Refills Prov:RICHARD CAUSEY MD 03/01/18 Lancets (Relion Thin) 1 Each Each, BOX ASDIRECTED DAILY, #1 3 Refills Test blood sugar daily Prov:RICHARD CAUSEY MD 09/30/17 [Relion Ultima] No Conflict Check, 1 STRIP ASDIRECTED DAILY, #1 BOX 12 Refills Test blood sugar daily Prov:RICHARD CAUSEY MD 04/30/17 Reported Medications Aspirin (ASPIRIN) 81 Mg Tab.chew, 81 MG PO QDAY, TAB.CHEW 10/18/18 Cholecalciferol (Vitamin D3) (VITAMIN D3) 1,000 Unit Tablet, 2000 UNIT PO QDAY, TAB 09/06/18 Cyanocobalamin (Vitamin B-12) (VITAMIN B-12) 2,000 Mcg Tablet.er, 1 TAB PO DAILY 04/30/17 Discontinued Scripts Diazepam (VALIUM) 5 Mg Tablet, 5 MG PO ONCE, #1 TAB Take 45 minutes to an hour before procedure Prov:RICHARD CAUSEY MD 03/16/19 Past Medical/Surgical History Past Medical History Neurologic: Denies hx of: migraine parkinson's disease stroke transient ischemic attack vertigo HEENT: Denies hx of: cataracts glaucoma hearing deficit macular degeneration Cardiovascular: Reports hx of: hyperlipidemia hypertension Denies hx of: angina atrial fibrillation CHF coronary artery disease (Stress test and Chest Xray normal in late June before colonoscopy) Respiratory: Reports hx of: sleep apnea (On CPAP witrh oxygen) Denies hx of: asthma COPD pneumonia Gastrointestinal: Denies hx of: cholelithiasis constipation, chronic Crohn's disease diverticulitis Musculoskeletal: Reports hx of: back pain gout (Lst episode 2013?) Psychiatric: Denies hx of: alcoholism anxiety depression Endocrine: Reports hx of: diabetes type 2 hypothyroidism other endocrine history (benign parotid nodule 2015) Hematology/oncology: Reprots hx of: breast cancer (Right breast 2005 , lump ectomy and radiation ) Past Surgical History HEENT: Reports hx of: cataract extraction (Left) Gastrointestinal: Reports hx of: cholecystectomy Gynecologic: Reports hx of: hysterectomy Breast: Reports hx of: lumpectomy (right breast) Musculoskeletal: Reports hx of: spinal surgery (approx 1993) total joint replacement (left hip 12/10.) Reviewed Nurses Notes: Yes Old Medical Records Reviewed: Yes Hx Smoking: No Smoking Status: Never Smoker Exposure to Second Hand Smoke?: No Hx Substance Use Disorder: No Hx Alcohol Use: Yes Constitutional Vital Sign - Last 24 Hours 03/30/19 03/30/19 03/30/19 03/30/19 21:51 21:52 22:00 22:02 Temp 99.0 Pulse 85 79 Resp 24 B/P (MAP) 194/100 194/100 (131) 156/81 (106) Pulse Ox 86 91 O2 Delivery Room Air 03/30/19 03/30/19 03/30/19 03/30/19 22:17 22:29 22:30 22:32 Pulse 71 72 B/P (MAP) 138/75 (96) Pulse Ox 92 92 O2 Flow Rate 2.0 03/30/19 03/30/19 03/30/19 03/30/19 22:37 23:14 23:22 23:30 Pulse 76 64 B/P (MAP) 149/85 (106) 139/62 (87) Pulse Ox 92 92 03/30/19 03/30/19 03/31/19 03/31/19 23:37 23:52 00:00 00:07 Pulse 71 74 74 B/P (MAP) 157/83 (107) Pulse Ox 94 94 93 Intake and Output 03/30/19 03/30/19 03/31/19 15:00 23:00 07:00 Intake Total 1000 ml Balance 1000 ml Physical Exam Vital signs stable, afebrile, pulse ox normal, grossly elevated blood pressure 194/100, patient with a history of hypertension General Appearance: The patient is alert, has no immediate need for airway protection and no current signs of toxicity. Mild distress HEENT: Pupils equal and round no injection. Oropharynx without redness or exudate, mucous. Membranes moist Respiratory: Chest is non tender, lungs are clear to auscultation. Cardiac: regular rate and rhythm Gastrointestinal: Abdomen is soft,, distended abdomen, mild epigastric tenderness, no masses, bowel sounds normal. Musculoskeletal: Neck: Neck is supple and non tender. Extremities have full range of motion and are non tender. Skin: No rashes or lesions. DIFFERENTIAL DIAGNOSIS: After history and physical exam differential diagnosis was considered for abdominal pain including but not limited to appendicitis, cholecystitis, gastritis and urinary tract infection. Medical Decision Making Data Points Result Diagram: 03/30/19215503/30/192155 Laboratory Hematology Test 03/30/19 21:56 03/30/19 23:14 Red Blood Count 5.28 M/uL (4.17-5.56) Mean Corpuscular Volume 88.5 fL (80.0-96.0) Mean Corpuscular Hemoglobin 29.7 pg (26.0-33.0) Mean Corpuscular Hemoglobin Concent 33.6 g/dL (32.0-36.0) Red Cell Distribution Width 14.6 % (11.5-14.5) Mean Platelet Volume 8.6 fL (7.2-11.1) Neutrophils (%) (Auto) 68.7 % (39.4-72.5) Lymphocytes (%) (Auto) 21.8 % (17.6-49.6) Monocytes (%) (Auto) 7.2 % (4.1-12.4) Eosinophils (%) (Auto) 1.4 % (0.4-6.7) Basophils (%) (Auto) 0.9 % (0.3-1.4) Nucleated RBC Relative Count (auto) 0.1 /100WBC Neutrophils # (Auto) 6.9 K/uL (2.0-7.4) Lymphocytes # (Auto) 2.2 K/uL (1.3-3.6) Monocytes # (Auto) 0.7 K/uL (0.3-1.0) Eosinophils # (Auto) 0.1 K/uL (0.0-0.5) Basophils # (Auto) 0.1 K/uL (0.0-0.1) Nucleated RBC Absolute Count (auto) 0.01 K/uL D-Dimer Quantitative (PE/DVT) 0.58 ug/ml (0-0.50) Sodium Level 141 mmol/L (137-145) Potassium Level 3.6 mmol/L (3.5-5.0) Chloride Level 101 mmol/L (98-107) Carbon Dioxide Level 31 mmol/L (22-31) Blood Urea Nitrogen 17 mg/dl (7-18) Creatinine 1.00 mg/dl (0.52-1.04) Glomerular Filtration Rate Calc 54.2 Random Glucose 146 mg/dl (75-110) Calcium Level 9.7 mg/dl (8.4-10.2) Total Bilirubin 0.4 mg/dl (0.2-1.3) Aspartate Amino Transf (AST/SGOT) 23 U/L (0-35) Alanine Aminotransferase (ALT/SGPT) 30 U/L (0-56) Alkaline Phosphatase 95 U/L (0-126) Troponin I < 0.012 ng/ml Total Protein 8.0 g/dl (6.3-8.2) Albumin 4.3 g/dl (3.5-5.0) Amylase Level 102 U/L (0-110) Lipase 196 U/L (23-300) Urine Color Yellow Urine Clarity Clear Urine pH 5.0 pH (4.8-9.5) Urine Specific [place] 1.027 Urine Protein Negative mg/dL (NEGATIVE) Urine Glucose (UA) Negative mg/dL (NEGATIVE) Urine Ketones Negative mg/dL (NEGATIVE) Urine Blood Negative (NEGATIVE) Urine Nitrite Negative (NEGATIVE) Urine Bilirubin Negative (NEGATIVE) Urine Urobilinogen 2.0 mg/dL (0.2-1.9) Urine Leukocyte Esterase Trace (NEGATIVE) Urine RBC <1 /HPF (0-2/HPF) Urine WBC 6 /HPF (0-5/HPF) Urine Squamous Epithelial Cells Many /LPF (</=FEW) Urine Bacteria Negative /HPF (NONE-FEW) Urine Mucus None /HPF (NONE-FEW) Chemistry Test 03/30/19 21:56 03/30/19 23:14 White Blood Count 10.1 k/uL (4.5-11.0) Red Blood Count 5.28 M/uL (4.17-5.56) Hemoglobin 15.7 g/dL (12.0-16.0) Hematocrit 46.7 % (34.0-47.0) Mean Corpuscular Volume 88.5 fL (80.0-96.0) Mean Corpuscular Hemoglobin 29.7 pg (26.0-33.0) Mean Corpuscular Hemoglobin Concent 33.6 g/dL (32.0-36.0) Red Cell Distribution Width 14.6 % (11.5-14.5) Platelet Count 212 K/uL (150-450) Mean Platelet Volume 8.6 fL (7.2-11.1) Neutrophils (%) (Auto) 68.7 % (39.4-72.5) Lymphocytes (%) (Auto) 21.8 % (17.6-49.6) Monocytes (%) (Auto) 7.2 % (4.1-12.4) Eosinophils (%) (Auto) 1.4 % (0.4-6.7) Basophils (%) (Auto) 0.9 % (0.3-1.4) Nucleated RBC Relative Count (auto) 0.1 /100WBC Neutrophils # (Auto) 6.9 K/uL (2.0-7.4) Lymphocytes # (Auto) 2.2 K/uL (1.3-3.6) Monocytes # (Auto) 0.7 K/uL (0.3-1.0) Eosinophils # (Auto) 0.1 K/uL (0.0-0.5) Basophils # (Auto) 0.1 K/uL (0.0-0.1) Nucleated RBC Absolute Count (auto) 0.01 K/uL D-Dimer Quantitative (PE/DVT) 0.58 ug/ml (0-0.50) Glomerular Filtration Rate Calc 54.2 Calcium Level 9.7 mg/dl (8.4-10.2) Total Bilirubin 0.4 mg/dl (0.2-1.3) Aspartate Amino Transf (AST/SGOT) 23 U/L (0-35) Alanine Aminotransferase (ALT/SGPT) 30 U/L (0-56) Alkaline Phosphatase 95 U/L (0-126) Troponin I < 0.012 ng/ml Total Protein 8.0 g/dl (6.3-8.2) Albumin 4.3 g/dl (3.5-5.0) Amylase Level 102 U/L (0-110) Lipase 196 U/L (23-300) Urine Color Yellow Urine Clarity Clear Urine pH 5.0 pH (4.8-9.5) Urine Specific [place] 1.027 Urine Protein Negative mg/dL (NEGATIVE) Urine Glucose (UA) Negative mg/dL (NEGATIVE) Urine Ketones Negative mg/dL (NEGATIVE) Urine Blood Negative (NEGATIVE) Urine Nitrite Negative (NEGATIVE) Urine Bilirubin Negative (NEGATIVE) Urine Urobilinogen 2.0 mg/dL (0.2-1.9) Urine Leukocyte Esterase Trace (NEGATIVE) Urine RBC <1 /HPF (0-2/HPF) Urine WBC 6 /HPF (0-5/HPF) Urine Squamous Epithelial Cells Many /LPF (</=FEW) Urine Bacteria Negative /HPF (NONE-FEW) Urine Mucus None /HPF (NONE-FEW) Coagulation Test 03/30/19 21:56 D-Dimer Quantitative (PE/DVT) 0.58 ug/ml Urinalysis Test 03/30/19 23:14 Urine Color Yellow Urine Clarity Clear Urine pH 5.0 pH (4.8-9.5) Urine Specific [place] 1.027 Urine Protein Negative mg/dL (NEGATIVE) Urine Glucose (UA) Negative mg/dL (NEGATIVE) Urine Ketones Negative mg/dL (NEGATIVE) Urine Blood Negative (NEGATIVE) Urine Nitrite Negative (NEGATIVE) Urine Bilirubin Negative (NEGATIVE) Urine Urobilinogen 2.0 mg/dL (0.2-1.9) Urine Leukocyte Esterase Trace (NEGATIVE) Urine RBC <1 /HPF (0-2/HPF) Urine WBC 6 /HPF (0-5/HPF) Urine Squamous Epithelial Cells Many /LPF (</=FEW) Urine Bacteria Negative /HPF (NONE-FEW) Urine Mucus None /HPF (NONE-FEW) EKG/Imaging EKG Interpretation 12 lead EK Rhythm: normal sinus rhythm [place]: normal QRS: Old anterior Q waves,? Anterior Septal infarct, age-indeterminate ST segments: normal, comparison to previous EKG dated 08/27/18, no significant change ED Course/Re-evaluation Clinical Indication for ER IV: Hydration, IV Access ED Course Patient was admitted to an examination room. H&P was done. The differential diagnosis was considered. Patient with epigastric and diffuse abdominal pain dating to her right flank. Patient also with chronic back pain. She recently had an MRI of her abdomen to evaluate pancreatic mass which as been chronic in benign in nature. Patient notes onset of pain yesterday, worsening tonight with nausea but no vomiting. Patient has a recent visit from February with Dr. Causey. She was noted to have hypoxia and was being evaluated with primary function tests. Patient was evaluated tonight before IV was established. Bloods were drawn. Patient was medicated with Zofran and fentanyl for her pain. Patient's d-dimer was elevated, so a CTA pulmonary angiogram was ordered. Her EKG was unremarkable. Troponin returned negative. She CTA pulmonary injury was negative for PE. A CT abdomen and pelvis runoff was performed after the CTA looking for diverticulitis since patient has a history of diverticulitis. Patient was found to have an acute appendicitis noted on the CT scan. Consultation was called with general surgery, Dr. Moctezuma. He would like to use Zosyn. Patient's allergy to amoxicillin was evaluated. Patient states she does take amoxicillin prior to dental procedures. He notes that she is unsure why amoxicillin is listed as an allergy for her. 03/31/2019 00:03:39 am case was discussed with Dr. Rosalio Espinoza, general surgery on-call would like the patient admitted to the surgical service treated with Zosyn. Decision to Disposition Date: March 30, 2019 Decision to Disposition Time: 23:52 Depart Departure Latest Vital Signs Vital Signs Date Time Temp Pulse Resp B/P (MAP) Pulse Ox O2 Delivery O2 Flow Rate FiO2 03/31/19 00:07 74 93 03/31/19 00:00 157/83 (107) 03/30/19 22:29 2.0 03/30/19 21:51 99.0 24 Room Air Impression: Primary Impression: Acute appendicitis Additional Impressions: Hypoxia Obstructive sleep apnea Type II diabetes mellitus Hypothyroidism GERD (gastroesophageal reflux disease) Hypertension Condition: Improved Disposition: Admitted from ER Referrals: RICHARD CAUSEY MD (PCP) Problem Qualifiers Primary Impression: Acute appendicitis Acute appendicitis type: with localized peritonitis Appendicitis gangrene presence: without gangrene Appendicitis perforation presence: without perforation Appendicitis abscess presence: without abscess Qualified Codes: K35.30 - Acute appendicitis with localized peritonitis, without perforation or gangrene Additional Impressions: Type II diabetes mellitus 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
[2019-03-30] MEDS ORDERED: fentaNYL CITR 100 MCG/2 ML AMP IVP ONE (22:00)
[2019-03-30] MEDS ORDERED: ONDANSETRON 4 MG/2 ML VIAL IVP ONE (22:00)
[2019-03-30 22:14] LABS: PLATELET COUNT, AUTOMATED 212 K/uL (150-450)
[2019-03-30] MEDS ORDERED: NS(*) 0.9% 50 ML BAG 50 ML ONE (22:59)
[2019-03-30] MEDS ORDERED: IOPAMIDOL 76% 150 ML INFUS BTL 150 ML ONE (22:59)
[2019-03-30] MEDS ORDERED: NS(*) 0.9% 1000 ML BAG 1,000 ML IV ONE (23:15)
--- NOTE | 2019-03-30 23:37 | RADIOLOGY IMAGING REPORT ---
FACILITY: [facility] PATIENT NAME: Larissa Mccullough : 1945 MR: [id number] V: [id number] EXAM DATE: ORDERING PHYSICIAN: PETAR HARTMANN TECHNOLOGIST: [place] [facility] [place] Larissa Mccullough : 1945 Visit/Account:[id number] Date of Sevice: 03/30/2019 ADDENDUM #1 ADDENDUM: Correction: The hepatic lesion is in segment III. Report Dictated By: Bella Hanley at 03/30/2019 11:56 PM Report E-Signed By: Bella Hanley at 03/30/2019 11:[address] CTA CHEST W CON HISTORY: Hypoxia. Back pain. Elevated d-dimer. COMPARISON: 10/21/2016 and studies dating to 12/13/2008. TECHNIQUE: Pulmonary embolus protocol - Thin-slice axial imaging of the chest was performed during ma ximal pulmonary arterial opacification with intravenous nonionic iodinated contrast. 3D coronal slab MIPs and 2D reconstructions in the coronal and sagittal planes were performed to aid in pulmonary emb olus detection. Check Viewer images have been stored on PACS. One of the following dose optimization techniques was utilized in the performance of this exam: Autom ated exposure control; adjustment of the mA and/or kV according to the patient's size; or use of an i terative reconstruction technique. Specific details can be referenced in the facility's radiology CT exam operational policy. CONTRAST: 75 mL of IV Isovue-370. FINDINGS: Pulmonary arteries: There is adequate opacification of the pulmonary arteries to the segmental branch es. There are no filling defects in the visible pulmonary arteries. Pulmonary arteries are normal in caliber. Thoracic inlet: Normal. Aorta: No aneurysm or dissection. There is mild atherosclerosis of the aorta. Heart / Pericardium: The heart is enlarged. There is no ventricular septal deviation. There is no per icardial effusion. There is no coronary artery calcification. Mediastinum / Rosaline: Normal mediastinum. No lymphadenopathy. Lungs / Pleura: No pleural effusion. There is mild atelectasis. No pneumothorax. The airways are norm al. Upper abdomen: Stable too small to characterize low attenuating lesion in hepatic segment II is stati stically likely to represent a benign cyst or hemangioma. Musculoskeletal/vertebra/body wall: There is retraction of the right nipple with associated skin thic kening, but the appearance is stable from 2008, compatible with a benign process. There is degenerati ve change of the glenohumeral joints. There is mild multilevel degenerative change of the spine. Ther e are numerous Schmorl nodes. IMPRESSION: 1. No pulmonary embolism. 2. Cardiomegaly. Report Dictated By: Bella Hanley at 03/30/2019 11:24 PM Report E-Signed By: Bella Hanley at 03/30/2019 11:34 PM WSN:[id number]
--- NOTE | 2019-03-30 23:59 | RADIOLOGY IMAGING REPORT ---
FACILITY: [facility] - [place], [place] PATIENT NAME: Larissa Mccullough : 1945 MR: [id number] V: [id number] EXAM DATE: ORDERING PHYSICIAN: PETAR HARTMANN TECHNOLOGIST: Location: [facility] - [place] Patient: Larissa Mccullough : 1945 Visit/Account:[id number] Date of Sevice: 03/30/2019 CT ABDOMEN PELVIS W/ CON HISTORY: Lower quadrant abdominal pain. History of diverticulitis and pancreatic cysts. COMPARISON: MR abdomen 03/17/2019. Most recent CT of the abdomen is from 01/10/2018 and studies dating to 12/13/2008. CT pulmonary and exam was performed at the same time as the current examination. TECHNIQUE: Axial images were obtained from the lung bases through the symphysis pubis with intravenou s contrast. Sagittal and coronal reformats were performed. One of the following dose optimization techniques was utilized in the performance of this exam: Autom ated exposure control; adjustment of the mA and/or kV according to the patient's size; or use of an i terative reconstruction technique. Specific details can be referenced in the facility's radiology CT exam operational policy. CONTRAST: 75 mL IV Isovue-370. FINDINGS: Lower chest: There is minimal atelectasis and/or scarring. There is mild calcification of the right c oronary artery origin. Liver: There are too small to characterize low attenuating lesions in hepatic segments III and , st able. The appearance on prior MR is compatible with cysts. Liver is diffusely decreased in density, c ompatible with hepatic steatosis Gallbladder/biliary: Cholecystectomy. No intrahepatic or extrahepatic ductal dilation. Pancreas: Mild atrophy. Tiny cysts in the pancreatic body identified on MR are much more difficult to appreciate on CT, but are not appreciably changed. Spleen: Normal. Adrenals: Normal. Kidneys/ureters/bladder: There are bilateral renal cysts. The right kidney is rotated on its axis, a developmental variant. No hydronephrosis. The visible ureters and bladder are normal. There is artifa ct from left hip prosthesis that mildly limits evaluation of the distal left ureter and a portion of the bladder. GI/mesentery/peritoneal cavity: There is no bowel obstruction. There is no wall thickening or pericol onic stranding. The appendix is enlarged, measuring 1 cm short axis diameter, and the tip of the appe ndix is hyperenhancing with surrounding inflammation (coronal images 49 through 58). The appendix nubia ses from the inferior cecum and tracks posteriorly. There is extensive sigmoid diverticulosis, and th ere is mild descending colon diverticulosis without diverticulitis. Vessels: There is mild atherosclerotic disease. No aneurysm. No dissection. Nodes: Normal. Pelvis: Uterus is surgically absent. Ovaries are normal for age. There are pelvic phleboliths. There is a moderate to large fat-containing left inguinal hernia, unchanged. Bones/vertebra/soft tissues: There is mild midline dependent subcutaneous edema. There is stable retr action of the left nipple with associated skin thickening, unchanged from 2009, compatible with a chad ign process. There is a left hip arthroplasty. There is degenerative change of the symphysis pubis. There is moderate to severe multilevel degenerative change of the spine. There are numerous vacuum cl efts. There are 3 mm retrolistheses of L1 compared to L2 and of L2 compared to L3. There are several Schmorl nodes. There is mild wedging of T7 and T8, unchanged. There is a mild rightward curvature of the lumbar spine. There is severe degenerative change of the right hip with subchondral cystlike trevino ge. IMPRESSION: 1. Acute uncomplicated appendicitis. 2. Diverticulosis without diverticulitis. 3. Hepatic steatosis. It can progress to steatohepatitis and eventual cirrhosis. 4. Mild right coronary artery calcification. 5. Moderate to large left fat-containing inguinal hernia, unchanged. Findings of acute appendicitis were discussed by phone with PETAR HARTMANN on 03/30/2019 11:51 PM. Report Dictated By: Bella Hanley t 03/30/2019 11:34 PM Report E-Signed By: Bella Hanley at 03/30/2019 11:55 PM WSN:[id number]
[2019-03-31] VITALS (12 sets, daily range): BP systolic 122–153; BP diastolic 62–84; BMI 54.1
[2019-03-31] MEDS ORDERED: PIPERACILLIN/TAZO*3.375GM VIAL 3.375 GM in NS(*) 0.9% 100 ML MINI-BAG 100 ML IVPB ONE (00:10)
[2019-03-31] MEDS ORDERED: fentaNYL CITR 100 MCG/2 ML AMP IVP ONE (00:45)
[2019-03-31] MEDS ORDERED: LR(*) 1000 ML BAG 1,000 ML IV PRN ×2 (00:46→12:56)
[2019-03-31] MEDS ORDERED: ONDANSETRON 4 MG/2 ML VIAL IVP PRN (00:50)
[2019-03-31] MEDS: PIPERACILLIN/TAZO*3.375GM VIAL 3.375 GM in NS(*) 0.9% 100 ML MINI-BAG 100 ML IVPB SCH ×4 (00:50→18:01)
[2019-03-31] MEDS ORDERED: NALOXONE HCL 0.4 MG/ML VIAL IVP PRN (00:50)
[2019-03-31] MEDS ORDERED: fentaNYL CITR 100 MCG/2 ML AMP IVP PRN (00:50)
[2019-03-31] MEDS ORDERED: INSULIN HUM LISPRO 100 UN/ML 3 ML VIAL SUBQ PRN (01:55)
--- NOTE | 2019-03-31 02:05 | Hospitalist Consultation ---
History of Present Illness Requesting Physician Dr. Moctezuma Reason for Consult Diabetes mellitus History of Present Illness This patient has been admitted for appendicitis. She is scheduled for surgery in the morning. History Problems: (1) Obstructive sleep apnea Status: Acute (2) Hypothyroidism Status: Chronic (3) Hypertension Status: Chronic (4) Type II diabetes mellitus Status: Chronic (5) Status post hip replacement Status: Acute (6) Morbid obesity with BMI of 40.0-44.9, adult Status: Chronic Home Meds Active Scripts Metformin Hcl (METFORMIN HCL) 1,000 Mg Tablet, 1.5 TAB PO DAILY, #180 TAB 3 Refills 500 mg QAM, 1000 mg QPM Prov:RICHARD MCKEON MD 03/16/19 Pravastatin Sodium (PRAVASTATIN SODIUM) 80 Mg Tablet, 80 MG PO QHS, #90 TAB 3 Refills Prov:RICHARD MCKEON MD 01/26/19 Allopurinol (Allopurinol) 300 Mg Tablet, 1 TAB PO DAILY, #90 TAB 3 Refills Prov:RICHARD MCKEON MD 12/08/18 Levothyroxine Sodium (LEVOTHYROXINE SODIUM) 50 Mcg Tablet, 1 TAB PO QDAY, #90 TAB 3 Refills Prov:RICHARD MCKEON MD 12/07/18 Lisinopril (LISINOPRIL) 10 Mg Tablet, 1 TAB PO BID, #180 TAB 3 Refills Prov:RICHARD MCKEON MD 10/20/18 Blood Sugar Diagnostic (ULTIMA) 1 Each Strip, 1 EACH MC DAILY, #100 STRIP 3 Refills Use one strip daily to test blood sugar Prov:RICHARD MCKEON MD 09/03/18 Furosemide (FUROSEMIDE) 20 Mg Tablet, 1 TAB PO DIRECTED, #36 TAB 3 Refills Three times a week Prov:RICHARD MCKEON MD 06/25/18 Sitagliptin Phosphate (JANUVIA) 50 Mg Tablet, 50 MG PO QDAY, #90 TAB 3 Refills Prov:RICHARD MCKEON MD 03/01/18 Lancets (Relion Thin) 1 Each Each, BOX ASDIRECTED DAILY, #1 3 Refills Test blood sugar daily Prov:RICHARD MCKEON MD 09/30/17 [Relion Ultima] No Conflict Check, 1 STRIP ASDIRECTED DAILY, #1 BOX 12 Refills Test blood sugar daily Prov:RICHARD MCKEON MD 04/30/17 Reported Medications Aspirin (ASPIRIN) 81 Mg Tab.chew, 81 MG PO QDAY, TAB.CHEW 10/18/18 Cholecalciferol (Vitamin D3) (VITAMIN D3) 1,000 Unit Tablet, 2000 UNIT PO QDAY, TAB 09/06/18 Cyanocobalamin (Vitamin B-12) (VITAMIN B-12) 2,000 Mcg Tablet.er, 1 TAB PO DAILY 04/30/17 Discontinued Scripts Diazepam (VALIUM) 5 Mg Tablet, 5 MG PO ONCE, #1 TAB Take 45 minutes to an hour before procedure Prov:RICHARD MCKEON MD 03/16/19 Allergies: Coded Allergies: rosuvastatin (Verified Allergy, Intermediate, Left neck pain , 03/30/19) morphine (Verified Allergy, Mild, 03/30/19) codeine (Verified Adverse Reaction, Mild, VOMITING, 03/30/19) amoxicillin (Verified Adverse Reaction, Unknown, JERKING, 03/30/19) clavulanic acid (Verified Adverse Reaction, Unknown, JERKING, 03/30/19) doxycycline (Verified Adverse Reaction, Unknown, JERKING, 03/30/19) Patient History: FH: CHF (congestive heart failure) MOTHER, , Age:91 FH: multiple myeloma FATHER, , Age:85 FH: multiple sclerosis FH: myocardial infarction FH: prostate cancer FATHER, , Age:85 siblings ([place] in 87) Hx Smoking: No Smoking Status: Never Smoker Exposure to Second Hand Smoke?: No Caffeine Intake: Coffee Caffeine/Cups Per Day: 1-2 cups per day Hx Alcohol Use: Yes Hx Substance Use Disorder: No Social Drug Use: Never Review of Systems All Systems Reviewed/Normal: Yes Exam Vital Signs Vital Signs Date Time Temp Pulse Resp B/P (MAP) Pulse Ox O2 Delivery O2 Flow Rate FiO2 03/31/19 01:30 133/69 (90) 03/31/19 01:25 71 91 03/30/19 22:29 2.0 03/30/19 21:51 99.0 24 Room Air Neuro: No Gross deficits Eyes: PERRLA Cardiovascular: Regular Rate and Rhythm Respiratory: Clear to Auscultation GI: Abd Soft and Non-Tender Extremities: No Edema Integumentary: No Cyanosis Medical Decision Making Data Points Result Diagram: 03/30/19215503/30/192155 Assessment and Plan Problems: (1) Pre-op exam Assessment & Plan: She is scheduled for appendectomy in the morning. Her chest CT showed some cardiomegaly, but no acute abnormality that would delay surgery. An EKG is currently pending. (2) Type II diabetes mellitus Status: Chronic Assessment & Plan: She is on chronic treatment with metformin and Januvia, which have both been placed on hold. She has been placed on sliding scale level #2. (3) Hypertension Status: Chronic Assessment & Plan: She is on chronic treatment with lisinopril and Lasix, which are currently on hold. (4) Hypothyroidism Status: Chronic Assessment & Plan: She is on chronic treatment with Synthroid, which is currently on hold. (5) TAMY (obstructive sleep apnea) Status: Chronic Assessment & Plan: She does wear cpap at night. (6) Morbid obesity with BMI of 40.0-44.9, adult Status: Chronic Venous Thromboembolism Antithrombotics Is Pt On Any Antithrombotics?: No Exam Sepsis Risk: No Definite Risk Problem Qualifiers (1) Type II diabetes mellitus: Diabetes mellitus nursing home insulin use: without rat exterminator use Diabetes mellitus complication status: without complication Qualified Codes: E11.9 - Type 2 diabetes mellitus without complications (2) Hypertension: Hypertension type: essential hypertension Qualified Codes: I10 - Essential (primary) hypertension (3) Hypothyroidism: Hypothyroidism type: unspecified Qualified Codes: E03.9 - Hypothyroidism, unspecified ALAN RAMÍREZ DO March 31, 2019 02:05
--- NOTE | 2019-03-31 05:11 | EKG ---
[place] [facility] [place] NAME: PAOLA HOOK : [id number] MR: [id number] V: [id number] EXAM DATE: ORDERING PHYSICIAN: ALAN JAIMES TECHNOLOGIST: AMINAH Test Reason : PALPITATION Blood Pressure : / mmHG Vent. Rate : 075 BPM Atrial Rate : 075 BPM P-R Int : 170 ms QRS Dur : 086 ms QT Int : 414 ms P-R-T Axes : 030 -15 055 degrees QTc Int : 462 ms Normal sinus rhythm Anteroseptal infarct (cited on or before 27-AUG-2018) Abnormal ECG When compared with ECG of 27-AUG-2018 09:05, Questionable change in initial forces of Anterior leads Nonspecific T wave abnormality, improved in Lateral leads Confirmed by ALAN RAMÍREZ ([id number]) on 03/31/2019 6:29:21 AM Referred By: Confirmed By:ALAN RAMÍREZ
[2019-03-31 06:00] LABS: PLATELET COUNT, AUTOMATED 183 K/uL (150-450)
--- NOTE | 2019-03-31 06:29 | RADIOLOGY IMAGING REPORT ---
FACILITY: [facility] PATIENT NAME: Larissa Mccullough : 1945 MR: [id number] V: [id number] EXAM DATE: ORDERING PHYSICIAN: ALAN JAIMES TECHNOLOGIST: [place] [facility] [place] Patient[place] Larissa Mccullough : 1945 Visit/Account:[id number] Date of Sevice: 03/31/2019 PORTABLE CHEST: Indication: Preoperative evaluation. Technique: A single frontal film was obtained. Comparison: 08/27/2018 Skeletal and soft tissue structures: There is a surgical anchor in the left shoulder. There are mild degenerative changes in the acromioclavicular joints. No acute deformity is identified. Heart and mediastinum: Within normal limits. Lung bermudez: Well-expanded and clear. No focal opacities. Pleural spaces: Unremarkable. Impression: No acute process or significant change. Report Dictated By: Ayad Sanchez MD at 03/31/2019 6:22 AM Report E-Signed By: Ayad Sanchez MD at 03/31/2019 6:24 AM WSN:[id number]
[2019-03-31] MEDS ORDERED: FLUSH 10 ML SYR IVP PRN (06:30)
--- NOTE | 2019-03-31 06:34 | Gen Surgery History & Physical ---
History of Present Illness Chief Complaint RLQ abdominal pain History of Present Illness 73yo female presents with 2 day h/o RLQ abdominal pain with subjective fevers. No N/V, no diarrhea or constipation. WBC normal. CT c/w "uncomplicated appendicitis." I have admitted her for further management. Only other abdominal surgery is cholecystectomy. History Problems: (1) H/O diverticulitis of colon Status: Chronic (2) Vitamin D deficiency Status: Chronic (3) Hypertension Status: Chronic (4) GERD (gastroesophageal reflux disease) Status: Chronic (5) Hypothyroidism Status: Chronic (6) TAMY (obstructive sleep apnea) Status: Chronic (7) Hyperlipidemia Status: Chronic (8) Morbid obesity with BMI of 40.0-44.9, adult Status: Chronic (9) Nodule of parotid gland Status: Chronic (10) Chronic low back pain *Optional Permanent Comment*: lumbar spinal stenosis Last Edited By: Mari Mckeon MD on Sep 03, 2018 10:44 Status: Chronic (11) Type II diabetes mellitus Status: Chronic (12) Status post hip replacement Status: Chronic Home Meds Active Scripts Metformin Hcl (METFORMIN HCL) 1,000 Mg Tablet, 1.5 TAB PO DAILY, #180 TAB 3 Refills 500 mg QAM, 1000 mg QPM Prov:MARI MCKEON MD 03/16/19 Pravastatin Sodium (PRAVASTATIN SODIUM) 80 Mg Tablet, 80 MG PO QHS, #90 TAB 3 Refills Prov:MARI MCKEON MD 01/26/19 Allopurinol (Allopurinol) 300 Mg Tablet, 1 TAB PO DAILY, #90 TAB 3 Refills Prov:MARI MCKEON MD 12/08/18 Levothyroxine Sodium (LEVOTHYROXINE SODIUM) 50 Mcg Tablet, 1 TAB PO QDAY, #90 TAB 3 Refills Prov:MARI MCKEON MD 12/07/18 Lisinopril (LISINOPRIL) 10 Mg Tablet, 1 TAB PO BID, #180 TAB 3 Refills Prov:MARI MCKEON MD 10/20/18 Blood Sugar Diagnostic (ULTIMA) 1 Each Strip, 1 EACH MC DAILY, #100 STRIP 3 Refills Use one strip daily to test blood sugar Prov:MARI MCKEON MD 09/03/18 Furosemide (FUROSEMIDE) 20 Mg Tablet, 1 TAB PO DIRECTED, #36 TAB 3 Refills Three times a week Prov:MARI MCKEON MD 06/25/18 Sitagliptin Phosphate (JANUVIA) 50 Mg Tablet, 50 MG PO QDAY, #90 TAB 3 Refills Prov:MARI MCKEON MD 03/01/18 Lancets (Relion Thin) 1 Each Each, BOX ASDIRECTED DAILY, #1 3 Refills Test blood sugar daily Prov:MARI MCKEON MD 09/30/17 [Relion Ultima] No Conflict Check, 1 STRIP ASDIRECTED DAILY, #1 BOX 12 Refills Test blood sugar daily Prov:MARI MCKEON MD 04/30/17 Reported Medications Aspirin (ASPIRIN) 81 Mg Tab.chew, 81 MG PO QDAY, TAB.CHEW 10/18/18 Cholecalciferol (Vitamin D3) (VITAMIN D3) 1,000 Unit Tablet, 2000 UNIT PO QDAY, TAB 09/06/18 Cyanocobalamin (Vitamin B-12) (VITAMIN B-12) 2,000 Mcg Tablet.er, 1 TAB PO DAILY 04/30/17 Discontinued Scripts Diazepam (VALIUM) 5 Mg Tablet, 5 MG PO ONCE, #1 TAB Take 45 minutes to an hour before procedure Prov:MARI MCKEON MD 03/16/19 Allergies: Coded Allergies: rosuvastatin (Verified Allergy, Intermediate, Left neck pain , 03/30/19) morphine (Verified Allergy, Mild, 03/30/19) codeine (Verified Adverse Reaction, Mild, VOMITING, 03/30/19) amoxicillin (Verified Adverse Reaction, Unknown, JERKING, 03/30/19) clavulanic acid (Verified Adverse Reaction, Unknown, JERKING, 03/30/19) doxycycline (Verified Adverse Reaction, Unknown, JERKING, 03/30/19) Patient History: FH: CHF (congestive heart failure) MOTHER, , Age:91 FH: multiple myeloma FATHER, , Age:85 FH: multiple sclerosis FH: myocardial infarction FH: prostate cancer FATHER, , Age:85 siblings ([place] in 87) Review of Systems All Systems Reviewed/Normal: Yes, Except as Noted Gastrointestinal: Abdominal Pain Exam General Appearance: Alert, Awake, No Acute Distress, Afebrile Neuro: No Gross deficits Eyes: PERRLA GI: Other (Soft, RLQ TTP with localized peritoneal irritation.) Extremities: Warm, Perfused Psych: Alert & Oriented X3, Appropriate Mood & Affect Medical Decision Making Data Points Result Diagram: 03/31/19 0507 03/31/19 0507 Assessment and Plan Problems: (1) Acute appendicitis Status: Acute Assessment & Plan: 03/31/19: Admit, NPO, IV fluids, IV abx, to OR this morning for lap appy. I have explained this plan to the patient including surgery in detail along with the alternatives and risks. She indicates her understanding of this discussion and her questions have been answered. She would like to proceed with this plan including surgery. Condition Stable. Time Spent: < 30 min Venous Thromboembolism Antithrombotics Is Pt On Any Antithrombotics?: No Problem Qualifiers (1) Acute appendicitis: Acute appendicitis type: with localized peritonitis Appendicitis gangrene presence: without gangrene Appendicitis perforation presence: without perforation Appendicitis abscess presence: without abscess Qualified Codes: K35.30 - Acute appendicitis with localized peritonitis, without perforation or gangrene ALAN JAIMES MD March 31, 2019 06:34
--- NOTE | 2019-03-31 07:10 | NUR ---
random blood glucose taken w/ morning labs at 0507. glucose of 117mg/dL, no finger stick necessary. Addendum: 03/31/19 at 0711 by NAPOLEON ZIMMERMAN RN Amended: Links added.
[2019-03-31] MEDS ORDERED: PANTOPRAZOLE SOD 40 MG IV VIAL IVP SCH (09:00)
[2019-03-31] MEDS ORDERED: NORMOSOL R SOLN(*) 1000 ML BAG 1,000 ML IV PRN (09:05)
[2019-03-31] MEDS ORDERED: ONDANSETRON 4 MG/2 ML VIAL ONE (10:27)
[2019-03-31] MEDS ORDERED: DEXAMETHASONE SOD 4 MG/ML VIAL ONE (10:27)
[2019-03-31] MEDS ORDERED: PROPOFOL EMUL(*) 10MG/ML 20 ML 20 ML ONE (10:27)
[2019-03-31] MEDS ORDERED: ROCURONIUM BROM 10 MG/ML 10 ML ONE (10:27)
[2019-03-31] MEDS ORDERED: LIDOCAINE MPF 1% 5 ML VIAL ONE (10:27)
[2019-03-31] MEDS ORDERED: SUGAMMADEX SOD 200 MG/2 ML SDV ONE ×2 (10:27→12:24)
[2019-03-31] MEDS ORDERED: fentaNYL CITR 250 MCG/5 ML AMP ONE (10:27)
[2019-03-31] MEDS ORDERED: KETAMINE HCL 200 MG/20 ML MDV ONE ×2 (10:29→12:27)
[2019-03-31] MEDS ORDERED: MIDAZOLAM 2 MG/2 ML VIAL IVP PRN (10:50)
[2019-03-31] MEDS ORDERED: traMADol 50 MG TAB PO PRN (13:00)
--- NOTE | 2019-03-31 13:07 | Post Operative Progress Note ---
Post Operative Progress Note Date: March 31, 2019 Time: 13:00 Surgeon: Rhianna Dictation number: [id number] Anesthesia: GETA by Dr. Monzon Pre-Op Diagnosis: Acute appendicitis Post-Op Diagnosis: Acute suppurative appendicitis Findings: Suppurative appendicitis, no perforation or gangrene Procedure(s): Lap appy Specimen Removed:(May be N/A): Appendix Complications: None Fluids: See anesthesia record Estimated Blood Loss: Minimal Date OP Note Dictated: March 31, 2019 Time OP Note Dictated: 13:01 ALAN JAIMES MD March 31, 2019 13:07
[2019-03-31] MEDS ORDERED: ALBUTEROL/IPRATROPIUM 3 ML NEB NEB ONE (13:15)
[2019-03-31] MEDS ORDERED: fentaNYL CITR 100 MCG/2 ML AMP ONE (13:33)
--- NOTE | 2019-03-31 13:38 | OPERATIVE REPORT 1 ---
EVENT DATE: March 31, 2019 SURGEON: Kartik Moctezuma MD ANESTHESIOLOGIST: Everette Lerner MD ANESTHESIA: General endotracheal. PREOPERATIVE DIAGNOSIS Acute appendicitis. POSTOPERATIVE DIAGNOSIS Acute appendicitis. PROCEDURE PERFORMED Laparoscopic appendectomy. COMPLICATIONS None. CONDITION Stable. ESTIMATED BLOOD LOSS Minimal. FINDINGS The patient had a superlative appendicitis. There was no perforation, gangrene or abscess. INDICATIONS The patient is a 73-year-old female who presented to the emergency room with a one day history of right lower quadrant abdominal pain and a CT scan was consistent with acute appendicitis. She provided consent for a laparoscopic appendectomy. DESCRIPTION OF PROCEDURE The patient was brought to the operating room and placed supine on the operating table. General endotracheal anesthesia was administered and her abdomen was prepped and draped in a sterile fashion. A time-out was completed. I injected the infraumbilical skin with 0.5% ropivacaine plain. I made a curvilinear smiley-face type incision in the infraumbilical rim and dissected through the dermis and subcutaneous fat until I identified the midline fascia. I made a vertical incision in the midline fascia, grasped the fascia with Manan clamps and entered the peritoneal cavity with my finger. I placed two interrupted 0 Vicryl sutures transversely through the vertical fascia defect and inserted a 12 mm Pablo type port through this wound and secured it in place the sutures. I insufflated the abdomen to a pressure of 15 mmHg and inserted a 5 mm, 30-degree angled scope through this port. Under direct visualization, I placed a 5 mm suprapubic midline port and a left lower 5 mm port. The patient was placed in Trendelenburg and planed towards the left to remove the viscera from the right lower quadrant. I was able to sweep small bowel from the right lower quadrant and immediately identified an inflamed purulent appendix but it was easy to get the surrounding tissues off it and there was no perforation or fluid collections. I divided the mesoappendix with the LigaSure device all the way up to the base of the appendix and divided the base of appendix flush with the cecum with the Endo-BRISSA stapler with a blue load. I then placed the appendix in a surgical specimen retrieval bag and removed it from the abdomen through the umbical port site. I irrigated and dried the right lower quadrant and inspected the area for bleeding. There was a little bleeding from the staple line, which I controlled with a single 5 mm clip. There was no further bleeding at this point. I did see really small bilateral inguinal hernia defects but there was nothing herniated through these at time of this operation. No other abnormalities were seen during this limited exploration. I then removed the 5 mm port, inspected the peritoneal surfaces for bleeding and there was none. I removed the camera, desufflated the abdomen, removed the umbilical port and then closed the fascia with another [id number] 0 Vicryl suture and tied all three of these down with good reapproximation of the fascial edges. Skin of each port site was closed with 4-0 Monocryl subcuticular suture. Skin was cleaned, dried and Steri-Strips applies followed by sterile surgical dressings. The patient was awakened and extubated in the operating room and transferred to the recovery room in stable condition, having tolerated the procedure without any apparent problems. CRYSTAL
[2019-03-31] MEDS ORDERED: OXYC-854 PO (18:31)
--- NOTE | 2019-03-31 18:34 | Short(Outpt) Discharge Summary ---
Discharge Summary Reason for Hosp/Final Diag: (1) Acute appendicitis Status: Acute Hospital Course & Plan: 03/31/19: Admit, NPO, IV fluids, IV abx, to OR this morning for lap appy. I have explained this plan to the patient including surgery in detail along with the alternatives and risks. She indicates her understanding of this discussion and her questions have been answered. She would like to proceed with this plan including surgery. 03/31/19 (postop): Pt doing well. Preop symptoms have resolved. Pt wants to go home. Tolerating diet. Will d/c to home this evening. Departure Discharge to: Home, Self Care Discharge Instructions Home Meds Active Scripts Oxycodone Hcl/Acet 5/325 Mg (ENDOCET 5-325 TABLET) 1 Each Tablet, 1 TAB PO Q4H PRN for PAIN, #20 TAB 0 Refills Prov:ALAN JAIMES MD 03/31/19 Metformin Hcl (METFORMIN HCL) 1,000 Mg Tablet, 1.5 TAB PO DAILY, #180 TAB 3 Refills 500 mg QAM, 1000 mg QPM Prov:RICHARD MCKEON MD 03/16/19 Pravastatin Sodium (PRAVASTATIN SODIUM) 80 Mg Tablet, 80 MG PO QHS, #90 TAB 3 Refills Prov:RICHARD MCKEON MD 01/26/19 Allopurinol (Allopurinol) 300 Mg Tablet, 1 TAB PO DAILY, #90 TAB 3 Refills Prov:RICHARD MCKEON MD 12/08/18 Levothyroxine Sodium (LEVOTHYROXINE SODIUM) 50 Mcg Tablet, 1 TAB PO QDAY, #90 TAB 3 Refills Prov:RICHARD MCKEON MD 12/07/18 Lisinopril (LISINOPRIL) 10 Mg Tablet, 1 TAB PO BID, #180 TAB 3 Refills Prov:RICHARD MCKEON MD 10/20/18 Blood Sugar Diagnostic (ULTIMA) 1 Each Strip, 1 EACH MC DAILY, #100 STRIP 3 Refills Use one strip daily to test blood sugar Prov:RICHARD MCKEON MD 09/03/18 Furosemide (FUROSEMIDE) 20 Mg Tablet, 1 TAB PO DIRECTED, #36 TAB 3 Refills Three times a week Prov:RICHARD MCKEON MD 06/25/18 Sitagliptin Phosphate (JANUVIA) 50 Mg Tablet, 50 MG PO QDAY, #90 TAB 3 Refills Prov:RICHARD MCKEON MD 03/01/18 Lancets (Relion Thin) 1 Each Each, BOX ASDIRECTED DAILY, #1 3 Refills Test blood sugar daily Prov:RICHARD MCKEON MD 09/30/17 Reported Medications Aspirin (ASPIRIN) 81 Mg Tab.chew, 81 MG PO QDAY, TAB.CHEW 10/18/18 Cholecalciferol (Vitamin D3) (VITAMIN D3) 1,000 Unit Tablet, 2000 UNIT PO QDAY, TAB 09/06/18 Cyanocobalamin (Vitamin B-12) (VITAMIN B-12) 2,000 Mcg Tablet.er, 1 TAB PO DAILY 04/30/17 Discontinued Scripts [Relion Ultima] No Conflict Check, 1 STRIP ASDIRECTED DAILY, #1 BOX 12 Refills Test blood sugar daily Prov:RICHARD MCKEON MD 04/30/17 Diazepam (VALIUM) 5 Mg Tablet, 5 MG PO ONCE, #1 TAB Take 45 minutes to an hour before procedure Prov:RICHARD MCKEON MD 03/16/19 Follow up Referrals: General Surgery - 04/13/19 @ Surgery, General with ALAN JAIMES MD You have a follow up appointment scheduled with Dr. Jaimes on 04/13/19, at 9:15am to see how you're healing from surgery and to discuss your pancreas. I will cancel your appointment for this upcoming Thursday. Diet: Diabetic Activity: No Heavy Lifting Special Instructions: You may remove the white surgical dressings on 04/02/19, then you can shower. After showering, leave the incisions open to air but leave the steristrips in place until they fall off on their own. Do not immerse the incisions for 2 weeks. Avoid any activity that involves straining or lifting more than 10 pounds for 2 weeks after surgery. Problem Qualifiers (1) Acute appendicitis: Acute appendicitis type: with localized peritonitis Appendicitis gangrene presence: without gangrene Appendicitis perforation presence: without perforation Appendicitis abscess presence: without abscess Qualified Codes: K35.30 - Acute appendicitis with localized peritonitis, without perforation or gangrene ALAN JAIMES MD March 31, 2019 18:34
[2019-03-31] MEDS ORDERED: PRAVASTATIN SOD 20 MG TAB PO SCH (21:00)
[2019-03-31] MEDS ORDERED: DOCUSATE SODIUM 100 MG CAP PO SCH (21:00)
[2019-04-01] MEDS ORDERED: LEVOTHYROXINE SOD 0.05 MG TAB PO SCH (06:00)
[2019-04-01 14:35] VITALS: Ht 139.7 cm; Wt 105.8 kg
== END 2019-03-31 18:30 | disposition home or self-care (01) ==
LOC: ER 22:08 → MED 03-31 00:21 → INTOOBSV 03-31 00:21
PROVIDERS: ADMIT Surgery; ATTEND Surgery
DX: K35.30 Acute appendicitis with localized peritonitis, without perforation or gangrene (principal); E11.9 Type 2 diabetes mellitus without complications; E03.9 Hypothyroidism, unspecified; K21.9 Gastro-esophageal reflux disease without esophagitis; I10 Essential (primary) hypertension; G47.33 Obstructive sleep apnea (adult) (pediatric)
CPT/HCPCS: 36415; 36416; 44970; 71045; 71275; 74177; 81001; 82150; 82948; 83690; 84484; 85025; 85379; 88304; 93005; 94640; 94660; 96361; 96365; 96372; 96374; 96375; 99284; C9113; G0378; J1100; J1815; J2001; J2250; J2405; J2543; J2704; J2795; J3010; J3490; J7030; J7050; J7120; J7620; Q9967; 82040; 82247; 82310; 82374; 82435; 82565; 82947; 84075; 84132; 84155; 84295; 84450; 84460; 84520

== ENCOUNTER → 2019-04-07 | Outpatient (CLI) | payer MEDICARE ==
[2019-04-01 14:35] VITALS: BMI 54.1
[~2019-04-07] MED LIST changes: +OXYC-854 PO
== END ==
LOC: RESP 20:56
PROVIDERS: ATTEND Emergency Medicine
DX: G47.33 Obstructive sleep apnea (adult) (pediatric) (principal); G47.36 Sleep related hypoventilation in conditions classified elsewhere; G47.61 Periodic limb movement disorder

== ENCOUNTER → 2019-04-19 | Outpatient (CLI) | payer MEDICARE ==
[2019-04-01 14:35] VITALS: BMI 54.1
--- NOTE | 2019-04-20 09:42 | RADIOLOGY IMAGING REPORT ---
[place] [facility] [place] PAOLA HOOK : [id number] MR: [id number] V: [id number] EXAM DATE: [id number] ORDERING PHYSICIAN: RICHARD MCKEON TECHNOLOGIST: Blaire Odonnell PROCEDURE: BILATERAL DIGITAL SCREENING MAMMOGRAM WITH CAD ASSISTED INTERPRETATION & 3D TOMOSYNTHESIS REASON FOR STUDY: Screening FAMILY HISTORY OF BREAST CANCER: 2 sisters & self BREAST PROCEDURES/TREATMENTS: Malignant stereotactic biopsy in 2006 & radiation therapy in 2006 COMPARISON: 04/15/18, 04/14/17, 03/10/16, 06/20/15, 06/08/14, 06/01/13 VIEWS OBTAINED: Bilateral 2D & 3D full field CC & MLO BREAST DENSITY: The breasts are heterogeneously dense which can obscure small masses. MAMMOGRAM FINDINGS: The Right breast is smaller than the Left. There is an area of architectural distortion & surgical clips in the approximate 6 o'clock position of the Right breast from prior lumpectomy although it appears relatively unchanged when compared to prior studies. The remainder of the parenchymal pattern throughout the breasts has likewise remained stable. IMPRESSION: BIRADS 2: Benign finding. DIAGNOSTIC CATEGORY 2--BENIGN FINDING. RECOMMENDATIONS: ROUTINE MAMMOGRAM AND CLINICAL EVALUATION. Dictated by: Sonal Patino M.D. on 04/19/2019 at 17:12 Transcribed by: JON on 04/20/2019 at 8:02 Approved by: Sonal Patino M.D. on 04/20/2019 at 9:41 [facility]
== END ==
LOC: MAMO 00:22
PROVIDERS: ATTEND Emergency Medicine
DX: Z12.31 Encounter for screening mammogram for malignant neoplasm of breast (principal)
CPT/HCPCS: 77063; 77067

== ENCOUNTER → 2019-05-18 | Outpatient (CLI) | payer MEDICARE ==
[2019-04-01 14:35] VITALS: BMI 54.1
[~2019-05-18] MED LIST changes: -OMEP-125 PO; +OMEP-126 PO; -TRAZ50TA34 PO; +TRAZ50TA52 PO
== END ==
LOC: US 01:34
PROVIDERS: ATTEND Emergency Medicine
DX: I51.7 Cardiomegaly (principal)
CPT/HCPCS: 93306